=== PATIENT | female | born 1955 | race Caucasian/White ===

== ENCOUNTER → 2016-11-29 | Outpatient (CLI) | payer OTHER ==
--- NOTE | 2016-11-30 10:03 | MM ---
Reason for exam: additional evaluation requested from prior study. Last mammogram was performed 1 year ago. History: Patient is postmenopausal and has history of breast cancer at age 54. Family history of breast cancer in maternal cousin at age 40. Malignant left breast needle localization of the left breast, November 30, 2009. Malignant US left guided VAD of the left breast, November 19, 2009. Radiation therapy of the left breast, 2009. Excisional biopsy of the left breast, June 2006. Left Mammotome Panel of the left breast, April 08, 2005. Cyst aspiration of the left breast, 2003. Benign cyst aspiration of the left breast, 2002. Radiation therapy of the left breast. Taking tamoxifen for 6 years beginning at age 54. Physical Findings: Nurse did not find any significant physical abnormalities on exam. MG Diagnostic Mammo w CAD JOSETTE Bilateral CC and MLO view(s) were taken. Prior study comparison: November 23, 2015, bilateral MG diagnostic mammo w CAD JOSETTE. The breast tissue is heterogeneously dense. This may lower the sensitivity of mammography. No significant new findings when compared with previous films. These results were verbally communicated with the patient and result sheet given to the patient on 11/29/16. ASSESSMENT: Benign, BI-RAD 2 RECOMMENDATION: Follow-up diagnostic mammogram of both breasts in 1 year.
== END | disposition home or self-care (01) ==
LOC: RADMAMWWP 14:46
PROVIDERS: ATTEND Internal Medicine Hematology & Oncology
DX: Z08 Encounter for follow-up examination after completed treatment for malignant neoplasm (principal); Z85.3 Personal history of malignant neoplasm of breast

== ENCOUNTER → 2017-01-31 | Outpatient (CLI) | payer OTHER ==
--- NOTE | 2017-01-31 13:20 | US ---
EXAMINATION TYPE: US venous doppler duplex LE LT DATE OF EXAM: 01/31/2017 1:03 PM COMPARISON: NONE CLINICAL HISTORY: M25.562 Pain left leg. Left above knee pain radiating down leg since knee injury in November SIDE PERFORMED: Left TECHNIQUE: The lower extremity deep venous system is examined utilizing real time linear array sonog shyann with graded compression, doppler sonography and color-flow sonography. VESSELS IMAGED: Common Femoral Vein Deep Femoral Vein Greater Saphenous Vein * Femoral Vein Popliteal Vein Small Saphenous Vein * Proximal Calf Veins (* superficial vessels) Left Leg: Negative for DVT. Simple fluid collection is noted medial to left popliteal fossa = 3.8 x 2.1 x 1.1cm. Tech findings called to Aracelis at Dr Alicia's Office at exam's end. IMPRESSION: 1. No diagnostic evidence of DVT 2. Probable Gusman's cyst correlate with MRI.
== END | disposition home or self-care (01) ==
LOC: RADUSWWP 12:37
PROVIDERS: ATTEND Orthopaedic Surgery
DX: M25.562 Pain in left knee (principal); I80.9 Phlebitis and thrombophlebitis of unspecified site

== ENCOUNTER → 2017-02-10 | Outpatient (CLI) | payer OTHER ==
[2017-02-10 21:03] LABS: Basophils # (A) 0.1 k/uL (0-0.2); Basophils % (A) 1 %; CH 28.5; CHCM 31.9; Eosinophils # (A) 0.2 k/uL (0-0.7); Eosinophils % (A) 3 %; HCT 42.4 % (34.0-46.0); HDW 2.48; HGB 13.4 gm/dL (11.4-16.0); Luc # (Auto) 0.14; Luc % (Auto) 2; Lymphocytes % (A) 34 %; MCH 28.4 pg (25.0-35.0); MCHC 31.7 g/dL (31.0-37.0); MCV 89.7 fL (80.0-100.0); Mean Platelet Volume 8.2; Monocytes # (A) 0.4 k/uL (0-1.0); Monocytes % (A) 6 %; Neutrophils # (A) 3.2 k/uL (1.3-7.7); Neutrophils % (A) 54 %; RBC 4.72 m/uL (3.80-5.40); RDW 12.2 % (11.5-15.5); WBC 5.9 k/uL (3.8-10.6); WBC (Perox) 6.15
[2017-02-10 21:11] LABS: ALT 42 U/L (9-52); AST 26 U/L (14-36); Alkaline Phosphatase 87 U/L (38-126); Anion Gap 10 mmol/L; Blood Urea Nitrogen 15 mg/dL (7-17); Carbon Dioxide 26 mmol/L (22-30); Chloride 104 mmol/L (98-107); Cholesterol 220 mg/dL (<200); Glucose 91 mg/dL (74-99); HDL Cholesterol 74 mg/dL (40-60); Non-African American GFR(MDRD) >60 (>60 ml/min/1.73 sqM); Sodium 140 mmol/L (137-145); Total Bilirubin 1.5 mg/dL (0.2-1.3); Total Protein 7.1 g/dL (6.3-8.2)
== END | disposition home or self-care (01) ==
LOC: MMGSC 09:22
PROVIDERS: ATTEND Family Medicine
DX: I26.99 Other pulmonary embolism without acute cor pulmonale (principal)
CPT/HCPCS: 36415; 80053; 80061; 85025

== ENCOUNTER → 2017-10-25 | Outpatient (CLI) | payer BC ==
--- NOTE | 2017-10-25 15:06 | US ---
EXAMINATION TYPE: US thyroid st tissue head/neck DATE OF EXAM: 10/25/2017 COMPARISON: NONE CLINICAL HISTORY: R22.0 SWELLING, MASS,LUMP IN HEAD. follow up exam GLAND SIZE: Right Lobe: 4.5 x 1.1 x 1.4 cm Overall Parenchyma: heterogenous thyroid ultrasound August 14, 2015 Left Lobe: 4.5 x 0.8 x 1.5 cm Overall Parenchyma: homogeneous Isthmus Thickness: 0.2 cm NODULES RIGHT: # of nodules measured on right: 3 1. 0.5 X 0.5 x 0.3 cm mixed nodule at the mid pole with well-defined margins; present with microcal cifications. This nodule is wider than tall and shows intranodular vascularity. Prior size: 0.5 x 0.3 x 0.5 cm 2. 0.4 X 0.4 x 0.3 cm mixed nodule at the mid pole with well-defined margins; present with microcalc ifications. This nodule is wider than tall and shows intranodular vascularity. Prior size: 0.9 x 0.5 x 0.6 cm 3. 0.7 X 0.7 x 0.3 cm mixed nodule at the lower pole with well-defined margins. This nodule is wide r than tall and shows intranodular vascularity. Prior size: 1.9 x 0.9 x 1.9 cm LEFT: # of nodules measured on left: 0 ISTHMUS: # of nodules measured in the isthmus: 0 Bilateral neck scanned, no evidence of lymphadenopathy. Scattered small nodules are stable. Previously visualized largest medial slightly hypoechoic solid no dule is not clearly identified on current exam or if this is significantly smaller in size. No new alvarez spicious nodules are seen. IMPRESSION: Normal-sized thyroid gland without new greater than 1 cm solid or cystic nodules identified.
--- NOTE | 2017-10-26 09:03 | MM ---
Reason for exam: additional evaluation requested from prior study. Last mammogram was performed 11 months ago. History: Patient is postmenopausal and has history of breast cancer at age 54. Family history of breast cancer in maternal cousin at age 40. Malignant left breast needle localization of the left breast, November 30, 2009. Malignant US left guided VAD of the left breast, November 19, 2009. Radiation therapy of the left breast, 2009. Excisional biopsy of the left breast, June 2006. Left Mammotome Panel of the left breast, April 08, 2005. Cyst aspiration of the left breast, 2003. Benign cyst aspiration of the left breast, 2002. Radiation therapy of the left breast. Taking tamoxifen for 6 years beginning at age 54. Physical Findings: Nurse Summary: less than 0.1cm nodule in the right breast at 11, 12, 3 and 5 o'clock (nurse kp). MG Diagnostic Mammo w CAD JOSETTE Bilateral CC and MLO view(s) were taken. XCCL view(s) were taken of the left breast. Prior study comparison: November 29, 2016, bilateral MG diagnostic mammo w CAD JOSETTE. November 23, 2015, bilateral MG diagnostic mammo w CAD JOSETTE. The breast tissue is heterogeneously dense. This may lower the sensitivity of mammography. Finding: Architectural distortion in the posterior position of the left breast consistent with known lumpectomy. These results were verbally communicated with the patient and result sheet given to the patient on 10/25/17. ASSESSMENT: Incomplete: need additional imaging evaluation, BI-RAD 0 RECOMMENDATION: Ultrasound of the right breast. (palpable by nurse/patient)
--- NOTE | 2017-10-26 09:04 | USB ---
Reason for exam: additional evaluation requested from abnormal screening. History: Patient is postmenopausal and has history of breast cancer at age 54. Family history of breast cancer in maternal cousin at age 40. Malignant left breast needle localization of the left breast, November 30, 2009. Malignant US left guided VAD of the left breast, November 19, 2009. Radiation therapy of the left breast, 2009. Excisional biopsy of the left breast, June 2006. Left Mammotome Panel of the left breast, April 08, 2005. Cyst aspiration of the left breast, 2003. Benign cyst aspiration of the left breast, 2002. Radiation therapy of the left breast. Taking tamoxifen for 6 years beginning at age 54. US Breast RT Right complete breast ultrasound includes all four quadrants, the retroareolar region and axilla. Finding demonstrates no cystic or solid lesion seen. Four palpable felt with no lesions noted. These results were verbally communicated with the patient and result sheet given to the patient on 10/25/17. ASSESSMENT: Negative, BI-RAD 1 RECOMMENDATION: Follow-up diagnostic mammogram of both breasts in 1 year.
== END | disposition home or self-care (01) ==
LOC: RADMAMWWP 13:53
PROVIDERS: ATTEND Internal Medicine Hematology & Oncology
DX: N64.4 Mastodynia (principal); E04.2 Nontoxic multinodular goiter; R92.8 Other abnormal and inconclusive findings on diagnostic imaging of breast; Z85.3 Personal history of malignant neoplasm of breast
CPT/HCPCS: 76536; 77066

== ENCOUNTER → 2017-11-13 | Outpatient (CLI) | payer BC ==
--- NOTE | 2017-11-13 13:37 | XR ---
EXAMINATION TYPE: XR Hip Complete RT DATE OF EXAM: 11/13/2017 COMPARISON: NONE HISTORY: 62 year-old female chronic pain for 3 years, osteopenia TECHNIQUE: 2 views FINDINGS: There is moderate to severe degenerative joint space narrowing with marginal spurring and subchondral sclerosis at the right hip. No acute fracture, subluxation, or dislocation. IMPRESSION: Moderate to severe right hip osteoarthrosis.
--- NOTE | 2017-11-13 13:58 | XR ---
EXAMINATION TYPE: XR ankle complete LT DATE OF EXAM: 11/13/2017 COMPARISON: NONE HISTORY: 62-year-old female swelling for 5 days, osteopenia TECHNIQUE: 2 views FINDINGS: Some anterior and lateral soft tissue swelling is noted. Ankle mortise remains congruent. Talar dome is intact. No acute fracture, subluxation, or dislocation seen. IMPRESSION: Anterior and lateral soft tissue swelling. No acute osseous abnormality seen.
== END | disposition home or self-care (01) ==
LOC: RADXRMAIN 10:43
PROVIDERS: ATTEND Nurse Practitioner Adult Health
DX: M16.11 Unilateral primary osteoarthritis, right hip (principal); M79.89 Other specified soft tissue disorders; M85.80 Other specified disorders of bone density and structure, unspecified site; C50.212 Malignant neoplasm of upper-inner quadrant of left female breast; Z17.0 Estrogen receptor positive status [ER+]; E03.9 Hypothyroidism, unspecified
CPT/HCPCS: 73502

== ENCOUNTER → 2018-10-29 | Outpatient (CLI) | payer BC ==
--- NOTE | 2018-10-29 14:44 | MM ---
Reason for exam: additional evaluation requested from prior study. Last mammogram was performed 1 year ago. History: Patient is postmenopausal and has history of breast cancer at age 54. Family history of breast cancer in maternal cousin at age 40. Malignant left breast needle localization of the left breast, November 30, 2009. Malignant US left guided VAD of the left breast, November 19, 2009. Radiation therapy of the left breast, 2009. Excisional biopsy of the left breast, June 2006. Left Mammotome Panel of the left breast, April 08, 2005. Cyst aspiration of the left breast, 2003. Benign cyst aspiration of the left breast, 2002. Radiation therapy of the left breast. Taking tamoxifen for 6 years beginning at age 54. Physical Findings: Nurse did not find any significant physical abnormalities on exam. MG Diagnostic Mammo w CAD JOSETTE Bilateral CC and MLO view(s) were taken. Prior study comparison: October 25, 2017, bilateral MG diagnostic mammo w CAD JOSETTE. November 29, 2016, bilateral MG diagnostic mammo w CAD JOSETTE. The breast tissue is heterogeneously dense. This may lower the sensitivity of mammography. Medial right middle depth asymmetry on additional views. Left post therapy change. These results were verbally communicated with the patient and result sheet given to the patient on 10/29/18. ASSESSMENT: Benign, BI-RAD 2 RECOMMENDATION: Follow-up diagnostic mammogram of both breasts in 1 year.
== END | disposition home or self-care (01) ==
LOC: RADMAMWWP 13:23
PROVIDERS: ATTEND Internal Medicine Hematology & Oncology
DX: Z85.3 Personal history of malignant neoplasm of breast (principal)
CPT/HCPCS: 77066

== ENCOUNTER → 2019-05-02 | Outpatient (CLI) | payer BC ==
--- NOTE | 2019-05-02 14:31 | XR ---
EXAMINATION TYPE: XR Hip Complete RT DATE OF EXAM: 05/02/2019 CLINICAL HISTORY: Right hip pain with no known injury TECHNIQUE: AP and frogleg views of the right hip are obtained. COMPARISON: None. FINDINGS: There is no acute fracture/dislocation evident in the right hip. The joint space in the r ight hip appears aligned however there is severe joint space narrowing with opposing surface sclerosi s of the femoral acetabular joint and subchondral cysts. There is [id number] articulation of the we ightbearing surface and marginal osteophytes. Femoral head maintains a normal rounded morphology. IMPRESSION: 1. Severe arthropathy of the right hip with [id number] articulation of the femoral acetabular joint , subchondral cysts and opposing surface sclerosis. 2. No acute fracture or dislocation in the right hip.
== END | disposition home or self-care (01) ==
LOC: RADXRMAIN 13:42
PROVIDERS: ATTEND Family Medicine
DX: M12.851 Other specific arthropathies, not elsewhere classified, right hip (principal); M85.651 Other cyst of bone, right thigh; M89.8X5 Other specified disorders of bone, thigh
CPT/HCPCS: 73502

== ENCOUNTER → 2019-05-02 | Outpatient (CLI) | payer BC ==
--- NOTE | 2019-05-02 09:15 | BD ---
EXAMINATION TYPE: Axial Bone Density DATE OF EXAM: 05/02/2019 COMPARISON: 04/26/2017 CLINICAL HISTORY: M 89.9 Height: 65.5 Weight: 160 FRAX RISK QUESTIONS: Alcohol (3 or more units per day): no Family History (Parent hip fracture): no Glucocorticoids (More than 3mos): no (Ex: prednisone, prednisolone, methylprednisolone, dexamethasone, and hydrocortisone). History of Fracture in Adulthood: yes Secondary Osteoporosis: 1. Type 1 Diabetes: no 2. Hyperthyroidism: no 3. Menopause before 45: hysterectomy age 45 4. Malnutrition: no 5. Chronic liver disease: no Rheumatoid Arthritis: no Current Tobacco Use: no RISK FACTORS HISTORY OF: History of Wrist Fracture: yes When: as young adult Family History of Osteoporosis: not to knowledge of patient Active: yes Diet low in dairy products/other sources of calcium: no Postmenopausal woman: no Take estrogen and/or progesterone medications: no Lost more than 2 inches in height since high school: no Frequent falls: no Poor Health: no, fair Hyperparathyroidism: no Adrenal Insufficiency: no MEDICATIONS: Prednisone or other steroids: no Thyroid Medications: Which medication: Levothyroxine How Long: over 20 years Osteoporosis Medications: no Additional Medications: Femara ; Vitamin D 3 Additional History: breast CA age 54; history of subacute hypothyroidism; thyroid nodule EXAM MEASUREMENTS: Bone mineral densitometry was performed using the Greetz System. Bone mineral density as measured about the Lumbar spine is: ----- L1-L4(G/cm2): 0.880 T Score Values are as follows: ----- L2: -2.5 ----- L3: -2.4 ----- L4: -2.8 ----- L1-L4: -2.5 Bone mineral density has: Decreased -5.6% since study of: 04/26/2017 Bone mineral density about the R hip (g/cm2): 0.885 Bone mineral density about the L hip (g/cm2): 0.838 T Score values are as follows: -----R Neck: -1.1 -----L Neck: -1.4 -----R Total: -1.1 -----L Total: -1.4 Bone mineral density has: Decreased -3.6% since study of: 04/26/2017 IMPRESSION: Osteopenia (T Score between -2.5 and -1). There is slightly increased risk of fracture and the patient may be considered for treatment. Re-Screen 2-5 years. NOTE: T-SCORE=SD OF THE YOUNG ADULT MEAN.
== END | disposition home or self-care (01) ==
LOC: RADBDWWP 07:14
PROVIDERS: ATTEND Internal Medicine Hematology & Oncology
DX: M85.80 Other specified disorders of bone density and structure, unspecified site (principal); C50.212 Malignant neoplasm of upper-inner quadrant of left female breast
CPT/HCPCS: 77080

== ENCOUNTER → 2019-06-03 | Outpatient (CLI) | payer BC | END | disposition home or self-care (01) | LOC: LABPAT 10:59 | PROVIDERS: ATTEND Orthopaedic Surgery | DX: Z01.812 Encounter for preprocedural laboratory examination (principal); M16.11 Unilateral primary osteoarthritis, right hip | CPT/HCPCS: 87070 ==

== ENCOUNTER → 2019-06-06 | Outpatient (CLI) | payer BC ==
--- NOTE | 2019-06-06 18:06 | ECHOF ---
Referral Reason:R06.09 Dyspna on exertion MEASUREMENTS -------- HEIGHT: 165.1 cm WEIGHT: 73.5 kg BP: RVIDd: 3.2 cm (< 3.3) IVSd: 0.9 cm (0.6 - 1.1) LVIDd: 3.6 cm (3.9 - 5.3) LVPWd: 1.1 cm (0.6 - 1.1) IVSs: 1.6 cm LVIDs: 2.2 cm LVPWs: 1.7 cm LAESV Index (A-L): 16.51 ml/m Ao Diam: 2.4 cm (2.0 - 3.7) AV Cusp: 2.1 cm (1.5 - 2.6) LA Diam: 3.4 cm (2.7 - 3.8) MV EXCURSION: 17.007 mm (> 18.000) MV EF SLOPE: 100 mm/s (70 - 150) EPSS: 0.2 cm MV E Jalen: 0.52 m/s MV DecT: 178 ms MV A Jalen: 0.53 m/s MV E/A Ratio: 0.98 RAP: 5.00 mmHg RVSP: 28.35 mmHg FINDINGS -------- Sinus rhythm. This was a technically good study. The left ventricular size is normal. Left ventricular wall thickness is normal. There is normal g lobal left ventricular contractility. Overall left ventricular systolic function is normal with, an EF between 60 - 65 %. The diastolic filling pattern is normal for the age of the patient 5.98. The right ventricle is normal in size. Normal LA size by volume 22+/-6 ml/m2. The right atrial size is normal. Interatrial and interventricular septum intact. The aortic valve is trileaflet and appears structurally normal. There is no evidence of aortic regu rgitation. There is no evidence of aortic stenosis. No mitral regurgitation. Mild tricuspid regurgitation present. There is no evidence of pulmonary hypertension. The right v entricular systolic pressure, as measured by Doppler, is 28.35mmHg. There is no pulmonic regurgitation present. The aortic root size is normal. The inferior vena cava is mildly dilated. There is no pericardial effusion. CONCLUSIONS -------- 1. Sinus rhythm. 2. This was a technically good study. 3. The left ventricular size is normal. 4. Left ventricular wall thickness is normal. 5. There is normal global left ventricular contractility. 6. Overall left ventricular systolic function is normal with, an EF between 60 - 65 %. 7. The diastolic filling pattern is normal for the age of the patient 5.98 8. The right ventricle is normal in size. 9. Normal LA size by volume 22+/-6 ml/m2. 10. The right atrial size is normal. 11. Interatrial and interventricular septum intact. 12. The aortic valve is trileaflet and appears structurally normal. 13. There is no evidence of aortic regurgitation. 14. There is no evidence of aortic stenosis. 15. No mitral regurgitation. 16. Mild tricuspid regurgitation present. 17. There is no evidence of pulmonary hypertension. 18. The right ventricular systolic pressure, as measured by Doppler, is 28.35mmHg. 19. There is no pulmonic regurgitation present. 20. The aortic root size is normal. 21. The inferior vena cava is mildly dilated. 22. There is no pericardial effusion. [employer] DANCER: Julianne Rubalcava RDCS
== END | disposition home or self-care (01) ==
LOC: RADECHMAIN 08:03
PROVIDERS: ATTEND Family Medicine
DX: I07.1 Rheumatic tricuspid insufficiency (principal)
CPT/HCPCS: 93306

== ENCOUNTER 2019-06-11 06:48 | Observation (INO) | payer BC ==
[2019-06-05 16:04] VITALS: BMI 26.9
--- NOTE | 2019-06-10 09:45 | HP ---
HISTORY AND PHYSICAL CHIEF COMPLAINT: Right hip pain. HISTORY OF PRESENT ILLNESS: Patient is a 63-year-old female who presents with progressive right hip pain over the past 5 years. It has worsened over the past 6 months. She is having thigh and groin pain with weightbearing activities. She notes this severely limits her. She is taking medications with only partial temporary relief. PAST MEDICAL HISTORY: Significant for hypothyroidism and breast cancer. PAST SURGICAL HISTORY: Significant for previous breast surgery and hysterectomy. CURRENT MEDICATIONS: 1. Femara. 2. Levoxyl. ALLERGIES: She denies drug allergies. FAMILY HISTORY: Noncontributory. SOCIAL HISTORY: Negative for current tobacco or alcohol use. REVIEW OF SYSTEMS: Sixteen-point review of systems otherwise reviewed and is noncontributory. PHYSICAL EXAMINATION: On examination, the patient is approximately 5 feet, 5 inches, 162 pounds of endomorphic habitus. HEENT exam is nonfocal. Neck is supple. Passive motion right hip, flexion 75 degrees, external rotation with the hip flexed 40 degrees, internal rotation -15 degrees with pain. Clinically, she has got 1 cm shortening of the right lower extremity compared to the left. Her distal neurovascular exam appears intact in the right lower extremity. X-rays of the right hip obtained in the office show severe osteoarthrosis with bone-on- bone changes. IMPRESSION: 1. Right hip severe osteoarthrosis. 2. History of breast cancer. RECOMMENDATIONS: I talked to the patient at length regarding her condition along with treatment options. At this point, she opts to proceed with surgery. We will plan to proceed with right total hip arthroplasty utilizing an anterior approach. We will institute DVT prophylaxis postoperatively. MMODL / IJN: [id number] /
[~2019-06-11 06:48] MED LIST: HYDROmorphone 0.5 MG/0.5 ML SYRINGE IVP PRN; LIDOCAINE 1% 20 ML VIAL (10MG/ML) FOR IV START INTRADERMA PRN; TRANEXAMIC ACID 1,000 MG in SODIUM CHLORIDE 0.9% 100 ML IVPB ONE
[2019-06-11] MEDS: MELOXICAM 7.5 MG TAB PO ONE ×2 (07:27→13:16)
[2019-06-11] MEDS: ACETAMINOPHEN TAB 500 MG TAB PO ONE ×2 (07:27→13:16)
[2019-06-11] MEDS: LACTATED RINGERS 1,000 ML IV SCH ×3 (07:32→22:17)
[2019-06-11] MEDS: ONDANSETRON 4 MG/2 ML VIAL IVP ONE ×2 (07:33→13:20)
[2019-06-11] MEDS: DEXAMETHASONE SOD PHOSPHATE 10 MG/ML 1 ML VIAL IV ONE ×2 (07:33→13:17)
[2019-06-11] MEDS: SCOPOLAMINE 1.5MG/72HR PATCH TRANSDERM ONE ×2 (07:34→13:20)
[2019-06-11] MEDS ORDERED: MIDAZOLAM 2 MG/2 ML VIAL ONE (07:55)
[2019-06-11] MEDS ORDERED: fentaNYL (PF) 50 MCG/ML 2 ML AMP ONE (07:55)
[2019-06-11] MEDS ORDERED: TRANEXAMIC ACID 1,000 MG/10 ML VIAL ONE (07:55)
[2019-06-11] MEDS ORDERED: PROPOFOL 10 MG/ML 20 ML VIAL IV ONE (07:55)
[2019-06-11] MEDS ORDERED: PHENYLEPHRINE-0.9% NACL SYG 1 MG/10 ML SYRINGE ONE (07:55)
[2019-06-11] MEDS ORDERED: SODIUM CHLORIDE 0.9% 100 ML BAG ONE (07:55)
[2019-06-11] MEDS ORDERED: ceFAZolin 3,000 MG in SODIUM CHLORIDE 0.9% IRRIGATIO 3,000 ML IRRIGATION ONE (08:38)
[2019-06-11] MEDS ORDERED: LACTATED RINGERS 1,000 ML IV ONE ×2 (09:32→12:09)
[2019-06-11] MEDS ORDERED: traMADol 50 MG TAB PO PRN (09:57)
[2019-06-11] MEDS ORDERED: HYDROcodone/APAP 5-325MG 1 EACH TAB PO PRN ×2 (09:57)
[2019-06-11] MEDS ORDERED: ACETAMINOPHEN TAB 325 MG TAB PO PRN (09:57)
[2019-06-11] MEDS ORDERED: MAGNESIUM HYDROXIDE 2,400 MG/10 ML CUP PO PRN (09:57)
[2019-06-11] MEDS ORDERED: NALOXONE 0.4 MG/ML 1 ML VIAL IV PRN (09:57)
[2019-06-11] MEDS ORDERED: HYDROmorphone 1 MG/ML 1 ML SYRINGE IVP PRN (09:57)
[2019-06-11] MEDS ORDERED: HYDROmorphone 0.5 MG/0.5 ML SYRINGE IVP PRN (09:57)
[2019-06-11] MEDS ORDERED: ONDANSETRON 4 MG/2 ML VIAL IVP PRN (09:57)
--- NOTE | 2019-06-11 10:21 | P.OP ---
Date of Procedure: 06/11/19 Preoperative Diagnosis: Severe right hip osteoarthrosis Postoperative Diagnosis: Same Procedure(s) Performed: Right total hip arthroplastypress-fitanterior approach Implants: Depuy Corail size 12 collared coxa vara press-fit femoral stem, 36+1.5 ceramic femoral head, 54 mm [place] acetabular shell with neutral polyethylene liner. Anesthesia: spinal Surgeon: Andre Howe Activities Assistant #1: Rob Culp Estimated Blood Loss (ml): 350 Pathology: other (Femoral head) Condition: stable Disposition: PACU Indications for Procedure: The patient is a 63-year-old female who presents with progressive right hip pain secondary to osteoporosis despite conservative measures. A discussion of the risks and benefits of operative intervention versus continued conservative measures was made with the patient. She opted to proceed with surgery. Operative risks to include infection, neurovascular injury, development of blood clots, possible leg length discrepancy, possible fracture, possible instability and need for subsequent procedures was discussed. Informed consent was obtained. Operative Findings: As below Description of Procedure: The patient was brought to the operating room, and after induction of spinal anesthesia was placed supine on the Sandhya table. Positioning was checked with fluoroscopy. The right hip was then prepped and draped in a normal fashion. A 12 cm incision was then made starting 2 fingerbreadths distal and 3 finger breaths posterior to the ASIS in line with the proximal femur. The skin was incised sharply. Subcutaneous tissues were divided sharply. Electrocautery was used for hemostasis. The fascia was split in line with skin incision. The interval between the sartorius and tensor fascia riana was then bluntly developed. The posterior fascia was opened with electrocautery. The lateral circumflex vessels were identified and cauterized prior to sectioning. A retractor was placed along the superior femoral neck as well as the anterior acetabular rim. A wide capsulotomy was performed. The neck cut was then made at a 45 angle to the shaft approximately 1 1/2 cm above the level of the lesser trochanter. The head was extracted. Attention was then paid towards preparing the acetabular. Anterior and posterior retractors were placed. The remaining capsular labral tissue sharply debrided clearly defining the aceta bular margins. I began reaming with a 45 mm reamer taking care to initially medialize then reaming at 45 of abduction and 20 of anteversion. Sequential reaming is performed up to 53 mm. A trial to 4 mm acetabular shell was inserted in the same orientation and was fully seated. There was good rim fit and stability. Positioning was checked with fluoroscopy. The final 54 mm acetabular shell was inserted again at 45 of abduction and 20 of anteversion. This was fully seated. There was good rim fit and stability. Again fluoroscopy was used to check the adequacy of placement. I did place a 30 mm x 6.5 mm cancellus screw posterior/superior with good purchase. A neutral polyethylene liner was gently impacted. Care was taken to avoid any soft tissue interposition. Pulsatile lavage was utilized. Attention was then paid towards preparing the proximal femur. The central region was cleared of soft tissue. A canal finder was used to find the femoral canal. Sequential broaching was performed up to size 12 taking care to lateralize proximally. A calcar mill was used to fashion the medial calcar. There was good rotational stability. A coxa vara neck along with a 36 mm +1.5 head was placed. The hip was gently reduced. Fluoroscopy was used to check the adequacy of positioning along with leg lengths. I felt both were good. The hip was gently dislocated. The trial components were removed. The final size 12 coxa vara collared standard press- fit femoral stem was inserted parallel to the posterior cortex. This was fully seated and there was good rotational stability. A 36 mm +1.5 ceramic femoral head was placed. This was gently impacted. The hip was then gently reduced. Final fluoroscopic view showed adequate placement implant along with episcopalian of leg length. Stability was checked with 80 of external rotation and 60 of extension of the right hip. The wound was irrigated with sterile lavage. The fascia was closed with running 0 Vicryl suture. There was minimal drainage therefore a deep drain was not placed. The second dose of IV TXA was given. The subcutaneous tissues were reapproximated interrupted 2-0 Vicryl sutures. The skin was reapproximated with 3-0 subcuticular strata fix suture. Skin tape and adhesive was applied. A sterile dressing was applied. The patient was then awoken from sedation and transferred to recovery room in good condition. Blood loss was estimated at 350 mL. No complications were incurred. The second dose of IV TXA was given. She did receive Cell Saver. Sponge and needle counts were correct at the end of the case. Joss ROLLE assisted during the major components is case to include exposure, bone resection, implantation, and closure.
--- NOTE | 2019-06-11 10:35 | FL ---
Fluoroscopy History: RIGHT ANTERIOR HIP REPLACEMENT 49 SEC FLUORO, 2 IMAGES SCANNED
[2019-06-11] MEDS ORDERED: diphenhydrAMINE 50 MG/ML 1 ML VIAL IVP ONE (11:25)
--- NOTE | 2019-06-11 15:51 | P.CONS ---
History of Present Illness - Chief Complaint Hip replacement medical management - History of Present Illness This is a very pleasant 63-year-old female past medical history of hypothyroidism breast cancer is coming in for elective right total hip replacement. Patient is now immediate postoperative period she is doing well. She denies any shortness of breath chest pain nausea or vomiting. Patient has history of hypothyroidism breast cancer which is taking currently Fumara. She denies any pre-existing history of cardiac, respiratory or renal or endocrinological diseases. Denies drinking or smoking. Review of Systems Review of system performed and is negative except mentioned in HPI Past Medical History Past Medical History: Cancer, Osteoarthritis (OA), Thyroid Disorder Additional Past Medical History / Comment(s): hx. breast cancer October 2009- radiation & surgery History of Any Multi-Drug Resistant Organisms: None Reported Past Surgical History: Breast Surgery, Hysterectomy Additional Past Surgical History / Comment(s): left breast lumpectomy w/few axillary lymph nodes removed, cyst removed from left forearm Past Anesthesia/Blood Transfusion Reactions: Postoperative Nausea & Vomiting (PONV) Past Psychological History: No Psychological Hx Reported Smoking Status: Never smoker Past Alcohol Use History: Rare Past Drug Use History: None Reported - Past Family History Mother Family Medical History: No Reported History Medications and Allergies Home Medications Medication Instructions Recorded Confirmed Type Cholecalciferol [Vitamin D3 (25 1,000 unit PO DAILY 06/05/19 06/11/19 History Mcg = 1000 Iu)] Letrozole [Femara] 2.5 mg PO HS 06/05/19 06/11/19 History Levothyroxine Sodium [Levoxyl] 75 mcg PO DAILY 06/05/19 06/11/19 History [place]-3 Fatty Acids [[place]-3] 1,000 mg PO DAILY 06/05/19 06/11/19 History Allergies Allergy/AdvReac Type Severity Reaction Status Date / Time No Known Allergies Allergy Verified 06/11/19 07:24 Physical Exam Vitals: Vital Signs Temp Pulse Pulse Resp BP Pulse Ox 06/11/19 12:40 63 125/81 99 06/11/19 12:25 74 119/62 100 06/11/19 11:15 58 L 14 119/56 99 06/11/19 10:30 68 16 114/58 100 06/11/19 10:15 58 L 16 112/56 100 06/11/19 10:11 97.0 F L 54 L 14 108/59 98 02/11/20 07:17 98.0 F 67 18 149/72 96 Intake and Output 06/11/19 06/11/19 06/11/19 06:59 14:59 22:59 Intake Total 6300 Output Total 325 Balance 5975 Intake: IV 5050 Intake, IV Titration 1250 Amount Lactated Ringers 1,000 ml 1250 @ 0 mls/hr IV .[facility] Rx#:[id number] Output: Estimated Blood Loss 325 Other: # Voids 1 Weight 73 kg Vital Signs: I have reviewed the vital signs. GENERAL: Well-nourished, Well-developed , no apparent distress, cooperative Eyes: PERRL, extraoculry movements intact, clear conjunctiva Head: : Atraumatic external nose and ears, oropharyngeal mucosa is moist without lesions or exudates Neck: Symmetric, trachea midline, No thyromegaly, no masses or neck vain pulsation, no neck rigidity CVS: +S1/S2, No murmurs or gallops. Peripheral pulses 2+ and equal in all extremities. RESP: Unlabored respiratory effort. Clear to auscultation bilaterally. Abdomen: Bowel sounds present in all 4 quadrants, Soft to palpation, Nontender/Nondistended, No hepatosplenomegaly, no hernias or masses, no CVA tnderness Musculoskeletal: Extremities w/o deformity, No cyanosis or clubbing, no joint swelling Skin: Warm, Dry. 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 Hypothyroidism Continue levothyroxine 2. History of breast cancer Patient is currently on Fumara which can cause some arthralgia and increase DVT risks Xarelto should be sufficient to mitigate risks of thrombolytic embolism his medication I don't anticipate any changes in his medications at time of discharge Any changes should be addressed in the outpatient through her oncologist 3. Status post right ALICIA Pain control Physical occupational therapy DVT prophylaxis with Xarelto as already ordered through orthopedic service Patient is a full code Surrogate decision maker is her who was in the room during the interview
[2019-06-11] MEDS ORDERED: SENNOSIDES-DOCUSATE SODIUM 1 EACH TAB PO SCH (21:00)
[2019-06-11] MEDS ORDERED: LETROZOLE 2.5 MG TAB PO SCH (21:30)
[2019-06-12] MEDS ORDERED: LEVOTHYROXINE 75 MCG TAB PO SCH (06:30)
[2019-06-12 07:36] VITALS: BP 106/68; PULSE 76; RESP 17; TEMP 98.4
[2019-06-12 07:55] LABS: Basophils % (A) 0 %; Eosinophils # (A) 0.1 k/uL (0-0.7); Eosinophils % (A) 1 %; HCT 29.3 % (34.0-46.0); Lymphocytes # (A) 1.8 k/uL (1.0-4.8); Lymphocytes % (A) 19 %; MCH 29.2 pg (25.0-35.0); MCHC 33.9 g/dL (31.0-37.0); MCV 86.2 fL (80.0-100.0); Mean Platelet Volume 7.8; Monocytes # (A) 0.7 k/uL (0-1.0); Monocytes % (A) 7 %; Neutrophils # (A) 6.6 k/uL (1.3-7.7); Neutrophils % (A) 71 %; Platelet Count 261 k/uL (150-450); RDW 12.5 % (11.5-15.5); WBC 9.3 k/uL (3.8-10.6)
[2019-06-12 08:03] LABS: HGB 9.9 gm/dL (11.4-16.0)
[2019-06-12] MEDS ORDERED: RIVAROXABAN 10 MG TAB PO SCH (09:00)
[2019-06-12] MEDS ORDERED: FAMOTIDINE 20 MG TAB PO SCH (09:00)
--- NOTE | 2019-06-12 11:07 | P.PN ---
Subjective Progress Note Date: 06/12/19 Principal diagnosis: status post right total hip arthroplasty Patient evaluated at bedside today, her is present. Patient is doing very well at this time, her pain is well-controlled. Denies chest pain or shortness of breath at this time. Objective - Vital Signs Vital signs: Vital Signs Temp 98.4 F 06/12/19 07:00 Pulse 76 06/12/19 07:00 Resp 17 06/12/19 07:00 BP 106/68 06/12/19 07:00 Pulse Ox 96 06/12/19 07:00 Intake & Output 06/11/19 06/12/19 06/12/19 18:59 06:59 18:59 Intake Total 6300 Output Total 325 Balance 5975 Weight 73 kg Intake: IV 5050 Intake, IV Titration 1250 Amount Lactated Ringers 1,000 ml 1250 @ 0 mls/hr IV .[facility] Rx#:[id number] Output: Estimated Blood Loss 325 Other: Voiding Method Toilet # Voids 1 1 - Exam Right lower extremity: Incision is clean, dry, and intact. The exofin fusion tape is in good condition. There is minimal soft tissue swelling and ecchymosis surrounding the medial and lateral aspects of the incision. Calf is soft, no tenderness with palpation. Plantar flexion, dorsiflexion, EHL, FHL are intact. Sensory exam to light touch throughout the extremity is intact, dorsal pedis pulses 2+. - Labs CBC & Chem 7: 06/12/19 06:57 Labs: Abnormal Lab Results - Last 24 Hours (Table) 06/12/19 Range/Units 06:57 RBC 3.40 L (3.80-5.40) m/uL Hgb 9.9 L D (11.4-16.0) gm/dL Hct 29.3 L (34.0-46.0) % Assessment and Plan Assessment: Postoperative day #1 status post right total hip arthroplasty Plan: Pain control, tramadol 50 mg for discharge GI and DVT prophylaxis, Eliquis 2.5mg bid for 2 weeks Wound care instructions discussed Ice and elevating techniques discussed Home physical therapy and nursing after discharge Medical recommendations Discharge planning: Plan for discharge home today
--- NOTE | 2019-06-12 11:10 | P.DS ---
Providers Date of admission: 06/11/2019 Expected date of discharge: 06/12/19 Attending physician: Andre Howe Consults: 06/11/19 09:59 Consult Physician Routine Consulting Provider: Johanne Armijo Reason/Comments: Medical Management Do you want consulting provider notified?: Yes Primary care physician: Johanne Armijo Hospital Course: Date of admission: 06/11/2019 Date of discharge: 06/12/2019 Admission diagnosis: Status post direct anterior right total hip arthroplasty Discharge diagnosis: Same Attending physician: Dr. Howe Surgical procedures: Direct anterior right total hip arthroplasty Brief history: Patient is a 63-year-old female with a history of progressive primary right hip osteoarthritis. At this point patient has failed conservative treatment measures and has opted to proceed with a elective direct anterior right total hip arthroplasty. Hospital course: Details of patient's surgery can be found in operative report. Patient tolerated the procedure well and was subsequently transported to orthopedic floor. Patient's orthopeidc and medical care was provided daily. Patient had daily laboratory tests performed for evaluation of overall blood counts. Patient had daily physical therapy to include strengthening range of motion as well as education with walker ambulation. Patient was treated with Xarelto for their postoperative DVT prophylaxis during their inpatient stay. Patient was noted to have a relatively uneventful postoperative course. Patient reported satisfactory pain control with oral pain medications by postoperative day 0. Patient showed satisfactory progress with physical therapy. Patient moved steadily through the program and had no difficulty meeting the goals by postoperative day 1. Given patient's otherwise satisfactory course and having met physical therapy goals, plan is to discharge patient home on postoperative day 1. Discharge condition/disposition: Patient will be discharged home in stable condition. Discharge medications: Instructions are given on resumption of patient's normal daily medications per primary care recommendation, in addition patient will be prescribed tramadol 50 mg, Colace 100 mg, Eliquis 2.5mg. Discharge instructions: 1. Wound care and infection precautions, keep incision dry and covered while showering, no lotions, creams, moisturizers. No soaking, tubs, pools, hottubs. Do not scrub over the incision. 2. Weight-bear as tolerated with walker / cane until follow-up. 3. Ice and elevate when necessary. Do not exceed 20 minutes per hour with ice pack. 4. Utilize compression sleeve until seen at first follow up appointment. 5. Visiting nursing care. 6. Home physical therapy. 7. Pain meds and anticoagulants per prescription. 8. Pain medication has potential to cause constipation. Increase oral fluid and fiber intake. Contact primary care provider if you have not had a bowel movement within 48 hours after discharge 9. No anti-inflammatory medication until discussed at first post operative visit, this including Motrin, Aleve, Mobic, Diclofenac. 10. Follow up in office at 2 weeks postop with Joss Culp PA-C 11. Follow up with your primary care doctor 7-10 days after discharge. 12. Contact [facility] with any questions, . Procedures: Direct anterior right total hip arthroplasty Patient Condition at Discharge: Good Plan - Discharge Summary Discharge Rx Participant: Yes New Discharge Prescriptions: New Docusate [Colace] 100 mg PO DAILY #30 capsule Apixaban [Eliquis] 2.5 mg PO BID #60 tab traMADol HCl [Ultram] 50 mg PO Q6H PRN #28 tab PRN Reason: Pain No Action Levothyroxine Sodium [Levoxyl] 75 mcg PO DAILY [place]-3 Fatty Acids [[place]-3] 1,000 mg PO DAILY Letrozole [Femara] 2.5 mg PO HS Cholecalciferol [Vitamin D3 (25 Mcg = 1000 Iu)] 1,000 unit PO DAILY Discharge Medication List Cholecalciferol [Vitamin D3 (25 Mcg = 1000 Iu)] 1,000 unit PO DAILY 06/05/19 [History] Letrozole [Femara] 2.5 mg PO HS 06/05/19 [History] Levothyroxine Sodium [Levoxyl] 75 mcg PO DAILY 06/05/19 [History] [place]-3 Fatty Acids [[place]-3] 1,000 mg PO DAILY 06/05/19 [History] Apixaban [Eliquis] 2.5 mg PO BID #60 tab 06/12/19 [Rx] Docusate [Colace] 100 mg PO DAILY #30 capsule 06/12/19 [Rx] traMADol HCl [Ultram] 50 mg PO Q6H PRN #28 tab 06/12/19 [Rx] Follow up Appointment(s)/Referral(s): Rob Culp PAC [PHYSICIAN 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 Wound care and infection precautions, keep incision dry and covered while showering, no lotions, creams, moisturizers. No soaking, pools, hot tubs. Do not scrub over incision. 2. Weight-bear as tolerated with walker / cane until follow-up. 3. Ice and elevate when necessary. Do not exceed 20 minutes per hour with ice pack. 4. Utilize compression sleeve until seen at first follow up appointment. 5. Pain meds and anticoagulants per prescription. 6. Pain medication has potential to cause constipation. Increase oral fluid and fiber intake. Contact primary care provider if you have not had a bowel movement within 48 hours after discharge. 7. No anti-inflammatory medication until discussed at first post operative visit, this including Motrin, Aleve, Mobic, Diclofenac. 8. Follow up in office at 2 weeks postop with Joss Culp PA-C 9. Follow up with your primary care doctor 7-10 days after discharge. 10. Contact [facility] with any questions, . Discharge Disposition: HOME WITH HOME HEALTH SERVICES
== END 2019-06-12 13:11 | disposition home health service (06) ==
LOC: OR 06:48 → 4SSUR 10:11 → OR 15:26
PROVIDERS: ADMIT Orthopaedic Surgery; ATTEND Orthopaedic Surgery
DX: M16.11 Unilateral primary osteoarthritis, right hip (principal); E03.9 Hypothyroidism, unspecified; R06.09 Other forms of dyspnea; Z85.3 Personal history of malignant neoplasm of breast; Z91.89 Other specified personal risk factors, not elsewhere classified; Z91.018 Allergy to other foods; Z79.811 Long term (current) use of aromatase inhibitors; Z79.890 Hormone replacement therapy; Z98.890 Other specified postprocedural states; Z90.710 Acquired absence of both cervix and uterus; Z92.3 Personal history of irradiation; Z87.2 Personal history of diseases of the skin and subcutaneous tissue; Z86.69 Personal history of other diseases of the nervous system and sense organs
CPT/HCPCS: 27130; 97116; 97161; 97535; 97165; 88305; 85025; 88311; 73501; G0378 ×2; C1776; J2250; J1200; J1100; J0690 ×3; J2405; J3010; J2370; J2704; 36415; 86850; 86900; 86901

== ENCOUNTER → 2019-10-31 | Outpatient (CLI) | payer BC ==
--- NOTE | 2019-10-31 09:29 | MM ---
Reason for exam: additional evaluation requested from prior study. Last mammogram was performed 1 year ago. History: Patient is postmenopausal and has history of breast cancer at age 54. Family history of breast cancer in maternal cousin at age 40. Malignant left breast needle localization of the left breast, November 30, 2009. Malignant US left guided VAD of the left breast, November 19, 2009. Radiation therapy of the left breast, 2009. Excisional biopsy of the left breast, June 2006. Left Mammotome Panel of the left breast, April 08, 2005. Cyst aspiration of the left breast, 2003. Benign cyst aspiration of the left breast, 2002. Radiation therapy of the left breast. Taking tamoxifen for 6 years beginning at age 54. Physical Findings: Nurse did not find any significant physical abnormalities on exam. MG 3D Diag Mammo W/Cad JOSETTE Bilateral CC and MLO view(s) were taken. XCCL view(s) were taken of the left breast. Prior study comparison: October 29, 2018, bilateral MG diagnostic mammo w CAD JOSETTE. October 25, 2017, bilateral MG diagnostic mammo w CAD JOSETTE. The breast tissue is heterogeneously dense. This may lower the sensitivity of mammography. Post surgical and post therapy changes left breast. No significant new findings when compared with previous films. These results were verbally communicated with the patient and result sheet given to the patient on 10/31/19. ASSESSMENT: Benign, BI-RAD 2 RECOMMENDATION: Follow-up diagnostic mammogram of both breasts in 1 year.
== END | disposition home or self-care (01) ==
LOC: RADMAMWWP 08:06
PROVIDERS: ATTEND Internal Medicine Hematology & Oncology
DX: Z08 Encounter for follow-up examination after completed treatment for malignant neoplasm (principal); Z85.3 Personal history of malignant neoplasm of breast
CPT/HCPCS: 77062; 77066

== ENCOUNTER → 2019-11-14 | Outpatient (CLI) | payer BC ==
[2019-11-14 17:27] LABS: T4, Free (Free Thyroxine) 1.4 ng/dL (0.80-1.80)
== END | disposition home or self-care (01) ==
LOC: LABWHC1 09:41
PROVIDERS: ATTEND Family Medicine
DX: E03.9 Hypothyroidism, unspecified (principal)
CPT/HCPCS: 36415; 84439; 84443; 84481

== ENCOUNTER → 2020-11-03 | Outpatient (CLI) | payer MEDICARE ==
--- NOTE | 2020-11-04 09:46 | MM ---
Reason for exam: additional evaluation requested from prior study. Last mammogram was performed 1 year ago. History: Patient has history of breast cancer at age 54. Family history of breast cancer in maternal cousin at age 40. Malignant left breast needle localization of the left breast, November 30, 2009. Malignant US left guided VAD of the left breast, November 19, 2009. Radiation therapy of the left breast, 2009. Excisional biopsy of the left breast, June 2006. Left Mammotome Panel of the left breast, April 08, 2005. Cyst aspiration of the left breast, 2003. Benign cyst aspiration of the left breast, 2002. Radiation therapy of the left breast. Took antineoplastic for 10 years beginning at age 54. Physical Findings: Nurse did not find any significant physical abnormalities on exam. MG 3D Diag Mammo W/Cad JOSETTE Bilateral CC and MLO view(s) were taken. XCCL view(s) were taken of the left breast. Prior study comparison: October 31, 2019, bilateral MG 3d diag mammo w/cad JOSETTE. October 29, 2018, bilateral MG diagnostic mammo w CAD JOSETTE. The breast tissue is heterogeneously dense. This may lower the sensitivity of mammography. Left lumpectomy and radiation change stable. These results were verbally communicated with the patient and result sheet given to the patient on 11/03/20. ASSESSMENT: Benign, BI-RAD 2 RECOMMENDATION: Routine screening mammogram of both breasts in 1 year.
== END | disposition home or self-care (01) ==
LOC: RADMAMWWP 09:58
PROVIDERS: ATTEND Internal Medicine Hematology & Oncology
DX: R92.2 Inconclusive mammogram (principal); Z85.3 Personal history of malignant neoplasm of breast; Z80.3 Family history of malignant neoplasm of breast
CPT/HCPCS: 77066; G0279; 77062

== ENCOUNTER 2021-04-01 09:43 | Emergency (ER) | payer MEDICARE, BC ==
--- NOTE | 2021-04-01 10:51 | XR ---
EXAMINATION TYPE: XR chest 2V DATE OF EXAM: 04/01/2021 COMPARISON: 03/31/2015 HISTORY: Shortness of breath TECHNIQUE: Frontal and lateral views of the chest are obtained. FINDINGS: Scattered senescent parenchymal changes noted. Hyperinflation compatible with COPD. No evidence for infiltrate. No evidence for atelectasis. Heart size is stable. Mediastinal structures are stable and grossly unremarkable. No evidence for hilar prominence. Degenerative changes dorsal spine. IMPRESSION: 1. No evidence for acute pulmonary disease.
--- NOTE | 2021-04-01 11:20 | ED ---
URI HPI - General Chief Complaint: Upper Respiratory Infection Stated Complaint: Covid +, Diarrhea, body aches Time Seen by Provider: 04/01/21 09:59 Source: patient, RN notes reviewed Mode of arrival: ambulatory Limitations: no limitations - History of Present Illness Initial Comments: Patient is a 65-year-old female that presents to the emergency department with Covid like symptoms since Monday. Patient notes she did test positive but does not have the results with her. Patient denied any symptoms at this time. Patient was well-appearing in no apparent distress. She denied chest pain shortness of breath headache nausea vomiting diarrhea constipation fever fatigue chills. - Related Data Home Medications Medication Instructions Recorded Confirmed Levothyroxine Sodium [Levoxyl] 75 mcg PO DAILY 06/05/19 04/01/21 Cetirizine HCl [Zyrtec] 10 mg PO HS 04/01/21 04/01/21 Allergies Allergy/AdvReac Type Severity Reaction Status Date / Time peanut Allergy Unknown Verified 04/01/21 10:57 tree nut Allergy Unknown Verified 04/01/21 10:57 Review of Systems ROS Statement: Those systems with pertinent positive or pertinent negative responses have been documented in the HPI. ROS Other: All systems not noted in ROS Statement are negative. Past Medical History Past Medical History: Cancer, Osteoarthritis (OA), Thyroid Disorder Additional Past Medical History / Comment(s): hx. breast cancer October 2009- radiation & surgery History of Any Multi-Drug Resistant Organisms: None Reported Past Surgical History: Breast Surgery, Hysterectomy, Joint Replacement Additional Past Surgical History / Comment(s): left breast lumpectomy w/few axillary lymph nodes removed, cyst removed from left forearm Past Anesthesia/Blood Transfusion Reactions: Postoperative Nausea & Vomiting (PONV) Past Psychological History: No Psychological Hx Reported Smoking Status: Never smoker Past Alcohol Use History: Rare Past Drug Use History: None Reported - Past Family History Mother Family Medical History: No Reported History General Exam Limitations: no limitations General appearance: alert, in no apparent distress, obese Head exam: Present: atraumatic, normocephalic, normal inspection Eye exam: Present: normal appearance, PERRL, EOMI. Absent: scleral icterus, conjunctival injection, periorbital swelling ENT exam: Present: normal exam, mucous membranes moist Neck exam: Present: normal inspection Respiratory exam: Present: normal lung sounds bilaterally. Absent: respiratory distress, wheezes, rales, rhonchi, stridor Cardiovascular Exam: Present: regular rate, normal rhythm, normal heart sounds. Absent: systolic murmur, diastolic murmur, rubs, gallop, clicks Extremities exam: Present: normal inspection, full ROM, normal capillary refill. Absent: tenderness, pedal edema, joint swelling, calf tenderness Neurological exam: Present: alert, oriented X3 Psychiatric exam: Present: normal affect, normal mood Skin exam: Present: warm, dry, intact, normal color. Absent: rash Course Vital Signs 04/01/21 09:53 Temperature 98.8 F Pulse Rate 93 Respiratory 20 Rate Blood Pressure 129/76 O2 Sat by Pulse 96 Oximetry Medical Decision Making - Medical Decision Making 65-year-old female with Covid like symptoms since Monday. Covid test, chest x-ray ordered. Covid test positive. Patient does meet criteria for monoclonal antibodies and wishes to undergo infusion. Patient is agreeable discharge home after infusion. Case discussed with Dr. Floyd, patient discharge home. - Lab Data Lab Results 04/01/21 Range/Units 10:20 Coronavirus (PCR) Detected A (Not Detectd) - Radiology Data Radiology results: report reviewed, image reviewed Chest x-ray: No evidence for acute pulmonary process. Disposition Clinical Impression: COVID Disposition: HOME SELF-CARE Condition: Stable Instructions (If sedation given, give patient instructions): Coronavirus Disease 2019 (COVID-19) Additional Instructions: Please return to the Emergency Department if symptoms worsen or any other concerns. Is patient prescribed a controlled substance at d/c from ED?: No Referrals: Johanne Armijo MD [Primary Care Provider] - 1-2 days Time of Disposition: 11:20
[2021-04-01] MEDS ORDERED: SODIUM CHLORIDE 0.9% 50 ML IVPB ONE (11:30)
[2021-04-01 11:44] VITALS: RESP 18
[2021-04-01] MEDS ORDERED: SOTROVIMAB (EUA) 500 MG in SODIUM CHLORIDE 0.9% 100 ML IVPB ONE (11:45)
[2021-04-01 13:40] VITALS: BP 115/60; PULSE 70; TEMP 99.3
== END 2021-04-01 13:41 | disposition home or self-care (01) ==
LOC: EC 09:43
DX: U07.1 COVID-19 (principal); E66.9 Obesity, unspecified; Z79.890 Hormone replacement therapy; Z68.26 Body mass index [BMI] 26.0-26.9, adult
CPT/HCPCS: 87635; 71046; 99284; Q0247

== ENCOUNTER 2021-08-16 09:48 | Emergency (ER) | payer MEDICARE, BC ==
[2021-08-16 09:59] VITALS: RESP 18
[2021-08-16] MEDS ORDERED: KETOROLAC 15 MG/ML 1 ML VIAL IM STA (10:28)
[2021-08-16] MEDS ORDERED: RX INFO: IV CONTRAST WAS GIVEN 1 EACH MISC MISCELLANE PRN (10:30)
[2021-08-16 11:01] LABS: Basophils # (A) 0.1 k/uL (0-0.2); Basophils % (A) 1 %; Eosinophils # (A) 0.3 k/uL (0-0.7); Eosinophils % (A) 2 %; HCT 38.2 % (34.0-46.0); HGB 12.5 gm/dL (11.4-16.0); Lymphocytes # (A) 1.5 k/uL (1.0-4.8); Lymphocytes % (A) 10 %; MCH 28.4 pg (25.0-35.0); MCHC 32.8 g/dL (31.0-37.0); MCV 86.6 fL (80.0-100.0); Monocytes # (A) 0.8 k/uL (0-1.0); Monocytes % (A) 6 %; Neutrophils # (A) 11.4 k/uL (1.3-7.7); Neutrophils % (A) 81 %; Platelet Count 368 k/uL (150-450); RDW 12.1 % (11.5-15.5); WBC 14.1 k/uL (3.8-10.6)
--- NOTE | 2021-08-16 11:10 | ED ---
ENT HPI - General Chief complaint: ENT Stated complaint: sorethroat Time Seen by Provider: 08/16/21 10:06 Source: patient, family, RN notes reviewed Mode of arrival: ambulatory Limitations: no limitations - History of Present Illness Initial comments: This is a 65-year-old female who presents the emergency department for recurrent ear infections and pain traveling down the throat. She states that since June she has been treated with antibiotics on 3 separate occasions for bilateral ear infections. She states that one of the antibiotics was amox icillin, however she cannot recall the others. She has had pain in the neck and throat since this began, however it is now progressing to the point where she is having trouble swallowing. Denies any fevers or chills. She has been treated with 2 courses of steroids, and states that she had some improvement in pain, however she did break out in a very painful rash on her face. She has an appointment with ENT on 08/27/2021, however she has not seen one yet. MD complaint: sore throat, ear pain Onset/Timin -: month(s) Location: R ear, L ear, throat Consistency: constant - Related Data Home Medications Medication Instructions Recorded Confirmed Levothyroxine Sodium [Levoxyl] 75 mcg PO DAILY 06/05/19 08/16/21 Cholecalciferol [Vitamin D3 (125 125 mcg PO DAILY 08/16/21 08/16/21 Mcg = 5000 Iu)] Fexofenadine/Pseudoephedrine 1 tab PO BID 08/16/21 08/16/21 [Shanti-D 12 Hour Tablet] Magnesium Oxide 400 mg PO DAILY 08/16/21 08/16/21 Montgomery-3 Fatty Acids [Montgomery-3] 1,000 mg PO DAILY 08/16/21 08/16/21 Previous Rx's Medication Instructions Recorded Diclofenac Sodium [Voltaren] 75 mg PO BID #20 tab 08/16/21 Allergies Allergy/AdvReac Type Severity Reaction Status Date / Time peanut Allergy Rash on Verified 08/16/21 12:16 legs tree nut Allergy Rash on Verified 08/16/21 12:16 legs methylprednisolone AdvReac Light Verified 08/16/21 12:16 [From Medrol] headed & skin on face turned red and was painful prednisone AdvReac Light Verified 08/16/21 12:16 headed & skin on face turned red and was painful Review of Systems ROS Statement: Those systems with pertinent positive or pertinent negative responses have been documented in the HPI. ROS Other: All systems not noted in ROS Statement are negative. Constitutional: Denies: fever, chills ENT: Reports: ear pain, throat pain Respiratory: Denies: cough, dyspnea Cardiovascular: Denies: chest pain, palpitations Gastrointestinal: Denies: abdominal pain, nausea, vomiting, diarrhea Genitourinary: Denies: urgency, dysuria Musculoskeletal: Denies: back pain Skin: Denies: rash Neurological: Denies: headache Past Medical History Past Medical History: Cancer, Osteoarthritis (OA), Thyroid Disorder Additional Past Medical History / Comment(s): hx. breast cancer October 2009- radiation & surgery History of Any Multi-Drug Resistant Organisms: None Reported Past Surgical History: Breast Surgery, Hysterectomy, Joint Replacement Additional Past Surgical History / Comment(s): left breast lumpectomy w/few axillary lymph nodes removed, cyst removed from left forearm Past Anesthesia/Blood Transfusion Reactions: Postoperative Nausea & Vomiting (PONV) Past Psychological History: No Psychological Hx Reported Smoking Status: Never smoker Past Alcohol Use History: Rare Past Drug Use History: None Reported - Past Family History Mother Family Medical History: No Reported History General Exam Limitations: no limitations General appearance: alert, in no apparent distress Head exam: Present: atraumatic, normocephalic, normal inspection ENT exam: Present: normal exam, normal oropharynx, mucous membranes moist Expanded TM/Canal exam: Effusion: Left TM, Right TM Mouth exam: Present: normal external inspection Throat exam: normal inspection. negative: tonsillar erythema, tonsillomegaly, tonsillar exudate, R peritonsillar mass, L peritonsillar mass Neck exam: Present: normal inspection, tenderness (right lateral aspect) Respiratory exam: Present: normal lung sounds bilaterally. Absent: respiratory distress, wheezes, rales, rhonchi, stridor Cardiovascular Exam: Present: regular rate, normal rhythm, normal heart sounds. Absent: systolic murmur, diastolic murmur, rubs, gallop, clicks Neurological exam: Present: alert, oriented X3, CN II-XII intact Psychiatric exam: Present: normal affect, normal mood Skin exam: Present: warm, dry, intact, normal color. Absent: rash Course Vital Signs 08/16/21 08/16/21 08/16/21 09:55 11:49 14:00 Temperature 98.2 F Pulse Rate 108 H 82 103 H Respiratory 18 18 18 Rate Blood Pressure 136/83 120/59 126/67 O2 Sat by Pulse 98 97 99 Oximetry 08/16/21 15:24 Temperature 99.0 F Pulse Rate 97 Respiratory 18 Rate Blood Pressure 130/70 O2 Sat by Pulse 97 Oximetry Medical Decision Making - Medical Decision Making This is a 65-year-old female who presents to the emergency department with bilateral ear pain and right-sided neck pain. Evaluation of the TMs revealed possible serous fluid and they were otherwise unremarkable. Patient was exquisitely tender on palpation of the right side of the neck. Computed tomography scan of the brain and soft tissue of the neck revealed a possible thyroiditis. TSH, free T3 and free T4 ordered. TSH was slightly low at 0.211 and T4 and T3 were within normal limits. I spoke with Dr. Mendoza, ear nose and throat, he reiterated that thyroids are not his specialty, however he states that pain from the neck can radiate to the ears, and states that if she does have a thyroid problem it is very possible that this is causing the persistent ear pain. Instructed the patient to contact her primary care's office for an appointment in the next 1-2 days for possible medication adjustment and discussing a referral to endocrinology for further thyroid evaluation. 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 Prescription for diclofenac sent to the pharmacy to help with symptoms. Patient had substantial relief with IM Toradol. She is advised to avoid taking diclofenac with any other anti-inflammatories such as ibuprofen, she can take Tylenol with this. Return precautions reviewed in depth, the patient is instructed to return to the emergency department with any new, worsening, or concerning symptoms. Patient verbalized understanding. This case was discussed in detail with the attending ED physician. Presentation, findings, and treatment plan discussed in detail as well. - Lab Data Result diagrams: 08/16/21 10:51 08/16/21 10:51 Lab Results 08/16/21 08/16/21 08/16/21 Range/Units 10:51 10:51 10:51 WBC 14.1 H (3.8-10.6) k/uL RBC 4.40 (3.80-5.40) m/uL Hgb 12.5 (11.4-16.0) gm/dL Hct 38.2 (34.0-46.0) % MCV 86.6 (80.0-100.0) fL MCH 28.4 (25.0-35.0) pg MCHC 32.8 (31.0-37.0) g/dL RDW 12.1 (11.5-15.5) % Plt Count 368 (150-450) k/uL MPV 7.0 Neutrophils % 81 % Lymphocytes % 10 % Monocytes % 6 % Eosinophils % 2 % Basophils % 1 % Neutrophils # 11.4 H (1.3-7.7) k/uL Lymphocytes # 1.5 (1.0-4.8) k/uL Monocytes # 0.8 (0-1.0) k/uL Eosinophils # 0.3 (0-0.7) k/uL Basophils # 0.1 (0-0.2) k/uL Sodium 136 L (137-145) mmol/L Potassium 4.2 (3.5-5.1) mmol/L Chloride 101 (98-107) mmol/L Carbon Dioxide 25 (22-30) mmol/L Anion Gap 10 mmol/L BUN 14 (7-17) mg/dL Creatinine 0.74 (0.52-1.04) mg/dL Est GFR (CKD-EPI)AfAm >90 (>60 ml/min/1.73 sqM) Est GFR (CKD-EPI)NonAf 86 (>60 ml/min/1.73 sqM) Glucose 117 H (74-99) mg/dL Calcium 9.0 (8.4-10.2) mg/dL Total Bilirubin 1.6 H (0.2-1.3) mg/dL AST 43 H (14-36) U/L ALT 45 H (4-34) U/L Alkaline Phosphatase 129 H (38-126) U/L Total Protein 6.8 (6.3-8.2) g/dL Albumin 3.7 (3.5-5.0) g/dL TSH 0.211 L (0.465-4.680) mIU/L Free T4 1.73 (0.78-2.19) ng/dL Free T3 pg/mL 3.4 (2.8-5.3) pg/ml - Radiology Data Radiology results: report reviewed, image reviewed Disposition Clinical Impression: Acute thyroiditis Disposition: HOME SELF-CARE Instructions (If sedation given, give patient instructions): Hyperthyroidism (ED) Additional Instructions: Return to the emergency department with any new, worsening, or concerning symptoms. Take 1-2 tablets of diclofenac up to twice daily for pain. Do not take ibuprofen or any other anti-inflammatories with this. You can supplement this with Tylenol. Contact the ENT and primary care provider office for a sooner appointment and ER follow-up. Prescriptions: Diclofenac Sodium [Voltaren] 75 mg PO BID #20 tab Is patient prescribed a controlled substance at d/c from ED?: No Referrals: None,Stated [Primary Care Provider] - 1-2 days
[2021-08-16 11:15] LABS: ALT 45 U/L (4-34); AST 43 U/L (14-36); African American GFR (CKD) >90 (>60 ml/min/1.73 sqM); Albumin 3.7 g/dL (3.5-5.0); Alkaline Phosphatase 129 U/L (38-126); Anion Gap 10 mmol/L; Blood Urea Nitrogen 14 mg/dL (7-17); Carbon Dioxide 25 mmol/L (22-30); Chloride 101 mmol/L (98-107); Glucose 117 mg/dL (74-99); Non-African American GFR(CKD) 86 (>60 ml/min/1.73 sqM); Potassium 4.2 mmol/L (3.5-5.1); Sodium 136 mmol/L (137-145); Total Bilirubin 1.6 mg/dL (0.2-1.3); Total Protein 6.8 g/dL (6.3-8.2)
--- NOTE | 2021-08-16 12:13 | CT ---
EXAMINATION TYPE: CT iac w con DATE OF EXAM: 08/16/2021 COMPARISON: No previous CT scan is available for comparison HISTORY: Sore throat and right ear pain. CT DLP: 2 5.2 mGycm (including the neck CT scan) Automated exposure control for dose reduction was used. CONTRAST: CT scan of the IACs is performed with IV Contrast, patient injected with 100 mL of Isovue 300. FINDINGS: The external auditory canals are patent bilaterally. Mastoid air cells show no evidence of abnormal opacification bilaterally. The middle ear ossicles are symmetric and unremarkable. There is no evidence of suspicious surrounding soft tissue density to suggest cholesteatoma. The scutum is preserved bilaterally. The cochlea and the semicircular canals are symmetric and unremarkable. Ves tibular aqueduct and internal carotid canal appear unremarkable. Temporomandibular joints are mainta ined bilaterally. IMPRESSION: Unremarkable CT scan of the temporal bones.
--- NOTE | 2021-08-16 12:30 | CT ---
EXAMINATION TYPE: CT soft tissue neck w con DATE OF EXAM: 08/16/2021 11:53 AM COMPARISON: No previous CT scan is available for comparison. HISTORY: Sore throat and right ear pain. CT DLP: 205.2 mGycm Automated exposure control for dose reduction was used. CONTRAST: CT scan of the neck is performed following with IV Contrast, patient injected with 100 mL of Isovue 3 00. Axial images are obtained, coronal and sagittal reformatted images are reviewed. FINDINGS: Diffusely enlarged hypoenhancing thyroid gland more on the right side with surrounding soft tissue sw elling/edema which may suggest acute thyroiditis, please correlate clinically. Hyperenhancing nodule is seen at the inferior aspect of the right thyroid lobe measuring 15 mm. Bilateral palatine tonsils calcifications. Otherwise unremarkable pharynx, larynx, trachea and visual ized portion of the esophagus. Symmetrical unremarkable parotid and mandibular salivary glands. No pathologically enlarged lymph nodes in the neck. Patent major neck vessels. Degenerative changes o f the cervical spine with anterolisthesis of T1 over T2, T2 over T3, T3 over T4 and C7 over T1. IMPRESSION: The above-described findings are suggestive of acute thyroiditis or other acute thyroid abnormality, please correlate clinically and with thyroid function tests. Follow-up ultrasound can be considered i f clinically required. Other incidental findings as described above.
[2021-08-16 13:31] LABS: T4, Free (Free Thyroxine) 1.73 ng/dL (0.78-2.19)
[2021-08-16] MEDS ORDERED: ACET/COD 300 MG/30 MG STARTER PACK 6 TAB BTL PO STA (15:04)
[2021-08-16 15:26] VITALS: BP 130/70; PULSE 97; TEMP 99
== END 2021-08-16 15:26 | disposition home or self-care (01) ==
LOC: EC 09:48
DX: E06.0 Acute thyroiditis (principal); E07.9 Disorder of thyroid, unspecified; Z91.010 Allergy to peanuts; Z88.8 Allergy status to other drugs, medicaments and biological substances; Z91.018 Allergy to other foods; Z79.890 Hormone replacement therapy
CPT/HCPCS: 36415; 84439; 84481; 80053; 84443; 85025; 84432; 70481; 70491; 99284; 96372; J1885; Q9967

== ENCOUNTER → 2021-11-08 | Outpatient (CLI) | payer MEDICARE, BC ==
--- NOTE | 2021-11-08 09:39 | BD ---
EXAMINATION TYPE: Axial Bone Density DATE OF EXAM: 11/08/2021 COMPARISON: 05/02/2019 CLINICAL HISTORY: 66 years year old Female. ICD-10 CODE: Z79.890 Height: 65 IN Weight: 151 LBS FRAX RISK QUESTIONS: History of Fracture in Adulthood: RT WRIST FX AGE 35 Secondary Osteoporosis: 3. Menopause before 45: PARTIAL HYST AGE 40 RISK FACTORS HISTORY OF: History of Wrist Fracture: RT WRIST AGE 35 Surgery to Hip(right): RT HIP REPLACEMENT 06/2019 Family History of Osteoporosis: YES MOTHER,/ SISTER Active: YES Postmenopausal woman: AGE 40 PARTIAL HYST MEDICATIONS: Thyroid Medications: YES Which medication: Levothyroxine How Lon+ YEARS Additional Medications: VIT D, LEVOTHYROXINE, OMEGA 3 Additional History: BREAST CANCER WITH RADIATION EXAM MEASUREMENTS: Bone mineral densitometry was performed using the Stratio System. Bone mineral density as measured about the Lumbar spine is: ----- L1-L4(G/cm2): 0.909 T Score Values are as follows: ----- L1: -1.9 ----- L2: -2.1 ----- L3: -2.2 ----- L4: -2.8 ----- L1-L4: -2.3 Bone mineral density has: Increased 2.1% since study of: 05/02/2019 RT HIP REPLACEMENT 06/2019 Bone mineral density about the L hip (g/cm2): 0.846 T Score values are as follows: -----L Neck: -1.4 -----L Total: -1.6 Bone mineral density has: Decreased -3.2% since study of: 05/02/2019 FRAX%s: The graph provided illustrates a 14.8 chance for a major osteoporotic fx and a 1.5 chance for the hips probability for fx in 10 years time. IMPRESSION: Osteopenia (T Score between -2.5 and -1). There is slightly increased risk of fracture and the patient may be considered for treatment. Re-Screen 2-5 years. NOTE: T-SCORE=SD OF THE YOUNG ADULT MEAN.
--- NOTE | 2021-11-09 07:53 | MM ---
Reason for Exam: Screening (asymptomatic). Last screening mammogram was performed 12 month(s) ago. Patient History: Menarche at age 13. First Full-Term at age 20. Hysterectomy at age 40. Breast cancer, left, age 54. Previous chest radiation therapy at age 54. 06/2006, Excisional Biopsy on the Left side. 2003, Cyst Aspiration on the Left side. 2002, Benign Cyst Aspiration on the left side. 11/30/2009, Malignant Excisional Biopsy on the left side. 11/19/2009, Malignant Core Biopsy on the left side. 04/08/2005, Core Biopsy on the Left side. 2009, Radiation Therapy on the left side. Radiation Therapy, left. Maternal cousin had breast cancer, age 40. Prior Study Comparison: 10/29/2018 Bilateral Diagnostic Mammogram, [facility]. 10/31/2019 Bilateral Diagnostic Mammogram, [facility]. 11/03/2020 Bilateral Diagnostic Mammogram, [facility]. Tissue Density: The breast tissue is heterogeneously dense. This may lower the sensitivity of mammography. Findings: Analyzed By CAD. There is no suspicious group of microcalcifications or new suspicious mass in either breast. Overall Assessment: Negative, BI-RAD 1 Management: Screening Mammogram of both breasts in 1 year. A clinical breast exam by your physician is recommended on an annual basis and results should be correlated with mammographic findings. Electronically signed and approved by: Phu Green M.D. Radiologis
== END | disposition home or self-care (01) ==
LOC: RADMAMWWP 07:50
PROVIDERS: ATTEND Internal Medicine Hematology & Oncology
DX: Z12.31 Encounter for screening mammogram for malignant neoplasm of breast (principal); M85.89 Other specified disorders of bone density and structure, multiple sites; Z78.0 Asymptomatic menopausal state
CPT/HCPCS: 77063; 77067; 77080

== ENCOUNTER 2022-10-16 08:37 | Emergency (ER) | payer MEDICARE, BC ==
[2022-10-16 08:43] VITALS: RESP 18; TEMP 97
[2022-10-16] MEDS ORDERED: KETOROLAC 15 MG/ML 1 ML VIAL IM STA (09:01)
--- NOTE | 2022-10-16 09:05 | ED ---
Extremity Problem HPI - General Chief complaint: Extremity Problem,Nontraumatic Stated complaint: Rt knee pain Time Seen by Provider: 10/16/22 08:53 Source: patient, RN notes reviewed, old records reviewed Mode of arrival: ambulatory Limitations: no limitations - History of Present Illness Initial comments: 67-year-old female presents to the emergency room with complaints of right knee pain since 4:00 yesterday afternoon. Patient states that she was walking when she developed pain. Denies any falls or injuries. Denies any fevers. No joint swelling. No calf pain. States did have right hip surgery 3 years ago, also history of osteoarthritis MD Complaint: joint pain (right knee) -: hour(s) (17) Location: right, knee History of Same: No Radiation: none Severity scale (1-10): 6 Quality: aching, sharp Consistency: intermittent Improves with: immobilization Worsens with: weight bearing, walking Associated Symptoms: denies other symptoms - Related Data Home Medications Medication Instructions Recorded Confirmed Levothyroxine Sodium [Levoxyl] 75 mcg PO DAILY 06/05/19 08/16/21 Cholecalciferol [Vitamin D3 (125 125 mcg PO DAILY 08/16/21 08/16/21 Mcg = 5000 Iu)] Fexofenadine/Pseudoephedrine 1 tab PO BID 08/16/21 08/16/21 [Shanti-D 12 Hour Tablet] Magnesium Oxide 400 mg PO DAILY 08/16/21 08/16/21 Caldwell-3 Fatty Acids [Caldwell-3] 1,000 mg PO DAILY 08/16/21 08/16/21 Previous Rx's Medication Instructions Recorded Diclofenac Sodium [Voltaren] 75 mg PO BID #20 tab 08/16/21 Allergies Allergy/AdvReac Type Severity Reaction Status Date / Time peanut Allergy Rash on Verified 10/16/22 08:43 legs tree nut Allergy Rash on Verified 10/16/22 08:43 legs methylprednisolone AdvReac Light Verified 10/16/22 08:43 [From Medrol] headed & skin on face turned red and was painful prednisone AdvReac Light Verified 10/16/22 08:43 headed & skin on face turned red and was painful Review of Systems ROS Statement: Those systems with pertinent positive or pertinent negative responses have been documented in the HPI. ROS Other: All systems not noted in ROS Statement are negative. Past Medical History Past Medical History: Cancer, Osteoarthritis (OA), Thyroid Disorder Additional Past Medical History / Comment(s): hx. breast cancer October 2009- radiation & surgery History of Any Multi-Drug Resistant Organisms: None Reported Past Surgical History: Breast Surgery, Hysterectomy, Joint Replacement Additional Past Surgical History / Comment(s): left breast lumpectomy w/few axillary lymph nodes removed, cyst removed from left forearm Past Anesthesia/Blood Transfusion Reactions: Postoperative Nausea & Vomiting (PONV) Past Psychological History: No Psychological Hx Reported Smoking Status: Never smoker Past Alcohol Use History: Rare Past Drug Use History: None Reported - Past Family History Mother Family Medical History: No Reported History General Exam Limitations: no limitations General appearance: alert, in no apparent distress Head exam: Present: atraumatic Eye exam: Present: normal appearance. Absent: scleral icterus, periorbital swelling Neck exam: Present: full ROM. Absent: meningismus Respiratory exam: Absent: respiratory distress, accessory muscle use Cardiovascular Exam: Present: regular rate Right Knee exam: Present: full ROM, full knee extension. Absent: tenderness, swelling, abrasion, laceration, ecchymosis, deformity, crepitus, dislocation, erythema, effusion, pain w/ pronation/supination, pain/laxity with valgus, pain/laxity with varus Lower Leg exam: Present: full ROM. Absent: tenderness, swelling Ankle exam: Present: full ROM. Absent: tenderness, swelling Foot/Toe exam: Present: full ROM. Absent: tenderness, swelling Neurovascular tendon exam: Present: no vascular compromise. Absent: abnormal cap refill, extremity cold to touch, pallor, decreased fine/light touch, foot drop, peroneal nerve deficit, significant pain with passive ROM of distal joint Neurological exam: Present: alert, oriented X3 Psychiatric exam: Present: normal affect, normal mood Skin exam: Present: warm, dry, normal color. Absent: cyanosis, diaphoretic, petechiae, pallor Course Vital Signs 10/16/22 08:40 Temperature 97 F L Pulse Rate 62 Respiratory 18 Rate Blood Pressure 134/74 O2 Sat by Pulse 98 Oximetry Medical Decision Making - Medical Decision Making Was pt. sent in by a medical professional or institution (, PA, POST HOLE DIGGER, urgent care, hospital, or long term...) When possible be specific @ -No Did you speak to anyone other than the patient for history (EMS, parent, family, police, friend...)? What history was obtained from this source @ -No Did you review nursing and triage notes (agree or disagree)? Why? @ -I reviewed and agree with nursing and triage notes Were old charts reviewed (outside hosp., previous admission, EMS record, old EKG, old radiological studies, urgent care reports/EKG's, long term records)? Report findings @ -No old charts were reviewed Differential Diagnosis (chest pain, altered mental status, abdominal pain women, abdominal pain men, vaginal bleeding, weakness, fever, dyspnea, syncope, headache, dizziness, GI bleed, back pain, seizure, CVA, palpatations, mental health, musculoskeletal)? @ -Knee effusion, fracture, dislocation, arthritis, septic joint, ligamentous injury EKG interpreted by me (3pts min.). @ -n/a X-rays interpreted by me (1pt min.). @ -yes X-ray of the right knee interpreted by me shows no evidence of fracture or dislocation. No effusion. CT interpreted by me (1pt min.). @ -None done U/S interpreted by me (1pt. min.). @ -None done What testing was considered but not performed or refused? (CT, X-rays, U/S, labs)? Why? @ -None What meds were considered but not given or refused? Why? @ -None Did you discuss the management of the patient with other professionals (professionals i.e. , PA, POST HOLE DIGGER, lab, RT, psych nurse, social sciences department chair, blow down operator, teacher, chief sales officer, trimming caser)? Give summary @ -No Was smoking cessation discussed for >3mins.? @ -No Was critical care preformed (if so, how long)? @ -No Were there social determinants of health that impacted care today? How? (Homelessness, low income, unemployed, alcoholism, drug addiction, transportation, low edu. Level, literacy, decrease access to med. care, usp, rehab)? @ -No Was there de-escalation of care discussed even if they declined (Discuss DNR or withdrawal of care, Hospice)? DNR status @ -No What co-morbidities impacted this encounter? (DM, HTN, Smoking, COPD, CAD, Cancer, CVA, ARF, Chemo, Hep., AIDS, mental health diagnosis, sleep apnea, morbid obesity)? @ -Hypothyroid, osteoarthritis Was patient admitted / discharged? Hospital course, mention meds given and route, prescriptions, significant lab abnormalities, going to OR and other pertinent info. @ -Discharged 67-year-old female presents to the emergency room with complaints of right knee pain since 4:00 yesterday afternoon. Patient states that she was walking when she developed pain. Denies any falls or injuries. Denies any fevers. No joint swelling. No calf pain. States did have right hip surgery 3 years ago, also history of osteoarthritis She was given a shot of Toradol with some improvement. Patient does have range of motion on physical exam. No Tenderness or swelling. Neurovascularly intact. Radiologist interpretation no acute osseous pathology. Mild tricompartmental osteoarthritic changes. Patient was offered a knee immobilizer and declined. She was encouraged to use her cane when walking to prevent any falls. Follow-up with Dr. Larson her orthopedic doctor tomorrow. Continue Tylenol and Motrin and Blue Emu topically. She was also provided Tylenol 3 starter pack for any worsening pain. She has agreeable to this plan of care. Case discussed with Dr. Huratdo. Undiagnosed new problem with uncertain prognosis? @ -No Drug Therapy requiring intensive monitoring for toxicity (Heparin, Nitro, Insulin, Cardizem)? @ -No Were any procedures done? @ -No Diagnosis/symptom? @ -Internal derangement right knee Acute, or Chronic, or Acute on Chronic? @ -Acute Uncomplicated (without systemic symptoms) or Complicated (systemic symptoms)? @ -Uncomplicated Side effects of treatment? @ -No Exacerbation, Progression, or Severe Exacerbation? @ -No Poses a threat to life or bodily function? How? (Chest pain, USA, PA, pneumonia, PE, COPD, DKA, ARF, appy, cholecystitis, CVA, Diverticulitis, Homicidal, Suici felicitas, threat to staff... and all critical care pts) @ -No Disposition Clinical Impression: Internal derangement of right knee Disposition: HOME SELF-CARE Condition: Good Instructions (If sedation given, give patient instructions): Knee Pain (ED) Additional Instructions: Continue taking Tylenol and Motrin as needed for pain. Use the blue emu topically to help with pain relief. You can also use a Tylenol 3 as provided fo r any worsening pain. Follow-up with orthopedic Dr. Larson tomorrow. Use your cane for support and to prevent falls. Return to the emergency room with any new or concerning symptoms. Is patient prescribed a controlled substance at d/c from ED?: No Referrals: Consuelo Keyes MD [Primary Care Provider] - 1-2 days Time of Disposition: 09:57
--- NOTE | 2022-10-16 09:52 | XR ---
EXAMINATION TYPE: XR knee complete RT DATE OF EXAM: 10/16/2022 9:29 AM INDICATION: Patient age:Female; 67 years old; Reason for study: pain with weightbearing no injury; PHH. COMPARISON: None. TECHNIQUE: The Right knee(s) was examined in Frontal, lateral and oblique projections. FINDINGS: No evidence of any acute osseous pathology, soft tissue swelling, or joint effusion is no kelly. Tricompartmental osteophyte formation involving the femoral condyles, tibial plateau and patella. Mi ld joint space narrowing. IMPRESSION: 1. No acute osseous pathology. 2. Mild tricompartmental osteoarthritic changes.
[2022-10-16] MEDS ORDERED: ACET/COD 300 MG/30 MG STARTER PACK 6 TAB BTL PO STA (09:57)
[2022-10-16 10:08] VITALS: BP 126/71; PULSE 57
== END 2022-10-16 10:09 | disposition home or self-care (01) ==
LOC: EC 08:37
DX: M23.91 Unspecified internal derangement of right knee (principal); E03.9 Hypothyroidism, unspecified; Z79.890 Hormone replacement therapy; Z91.010 Allergy to peanuts; Z91.018 Allergy to other foods; Z88.8 Allergy status to other drugs, medicaments and biological substances
CPT/HCPCS: 73562; 99283; 96372; J1885

== ENCOUNTER → 2022-10-17 | Outpatient (CLI) | payer MEDICARE, BC ==
--- NOTE | 2022-10-17 13:06 | US ---
EXAMINATION TYPE: US extremity nonvasc mass LT DATE OF EXAM: 10/17/2022 COMPARISON: NONE CLINICAL INDICATION: Female, 67 years old with history of R22.32 LT TRICEP NODULE; Lump left tricep a cesar x 2 months. TECHNIQUE: Grayscale ultrasound imaging of the left triceps in the area of palpable abnormality. FINDINGS: Scanned area of concern left tricep posteriorly. No abnormalities seen. IMPRESSION: Area of palpable abnormality does not correlate with mass or organizing fluid collection . Consider MRI for further evaluation of the soft tissue structures.
== END | disposition home or self-care (01) ==
LOC: RADUSWWP 12:18
PROVIDERS: ATTEND Family Medicine
DX: R22.32 Localized swelling, mass and lump, left upper limb (principal)

== ENCOUNTER → 2022-11-08 | Outpatient (CLI) | payer MEDICARE, BC ==
--- NOTE | 2022-11-13 10:28 | MR ---
EXAMINATION TYPE: MR knee RT wo con DATE OF EXAM: 11/08/2022 COMPARISON: None HISTORY: Right knee pain for 3 weeks. TECHNIQUE: Multiplanar, multisequence imaging of the right knee is performed without IV contrast. FINDINGS: There is no bone contusion or fracture. There is moderate osteoarthritic change of the medial compartment and patellofemoral compartment wher e there is moderate to marked cartilaginous thinning and chondromalacia. There are subchondral change s within the patella. There is a complex tear of the body and posterior horn of the medial meniscus. The lateral meniscus i s intact. The cruciate and collateral ligaments are intact. There is a small joint effusion. IMPRESSION: 1. Moderate osteoarthritic change of the medial compartment and patellofemoral compartment. 2. Complex tear of the body and posterior horn of the medial meniscus. 3. No injury of the collateral and cruciate ligaments. 4. Small joint effusion. 5. No bone contusion or fracture.
== END | disposition home or self-care (01) ==
LOC: RADMRIMAIN 20:15
PROVIDERS: ATTEND Orthopaedic Surgery
DX: M17.11 Unilateral primary osteoarthritis, right knee (principal); S83.231A Complex tear of medial meniscus, current injury, right knee, initial encounter; M25.461 Effusion, right knee; X58.XXXA Exposure to other specified factors, initial encounter

== ENCOUNTER → 2022-11-09 | Outpatient (CLI) | payer MEDICARE, BC ==
--- NOTE | 2022-11-10 20:16 | MM ---
Reason for Exam: Screening (asymptomatic). Last screening mammogram was performed 12 month(s) ago. Patient History: Menarche at age 13. First Full-Term at age 20. Hysterectomy at age 40. Patient has history of breast feeding. Breast cancer, left, age 54. Previous chest radiation therapy at age 54. 06/2006, Excisional Biopsy on the Left side. 2003, Cyst Aspiration on the Left side. 2002, Benign Cyst Aspiration on the left side. 11/30/2009, Malignant Excisional Biopsy on the left side. 11/19/2009, Malignant Core Biopsy on the left side. 04/08/2005, Core Biopsy on the Left side. 2009, Radiation Therapy on the left side. Radiation Therapy, left. Maternal cousin had breast cancer, age 40. Prior Study Comparison: 10/31/2019 Bilateral Diagnostic Mammogram, [facility]. 11/03/2020 Bilateral Diagnostic Mammogram, [facility]. 11/08/2021 Bilateral MG 3D screening mammo w/cad, [facility]. Tissue Density: The breast tissue is heterogeneously dense. This may lower the sensitivity of mammography. Findings: Analyzed By CAD. Postsurgical and posttreatment changes left breast. There is an oval area of nodular asymmetric density posterior upper outer quadrant right breast which appears larger and more defined for which further evaluation is recommended. Overall Assessment: Incomplete: need additional imaging evaluation, BI-RAD 0 Management: Diagnostic Mammogram of the right breast. Diagnostic Breast Ultrasound of the right breast. Additional views to include 3-D XCCL, spot 3-D MLO, and 3-D lateral views (including far posterior tissue). Subsequent targeted right breast ultrasound. [facility] will attempt to contact patient to return for supplemental views and ultrasound if indicated. Electronically signed and approved by: Conor Duggan M.D. Radiologist
== END | disposition home or self-care (01) ==
LOC: RADMAMWWP 12:27
PROVIDERS: ATTEND Internal Medicine Hematology & Oncology
DX: Z12.31 Encounter for screening mammogram for malignant neoplasm of breast (principal); Z80.3 Family history of malignant neoplasm of breast
CPT/HCPCS: 77063; 77067

== ENCOUNTER → 2022-11-15 | Outpatient (CLI) | payer MEDICARE, BC ==
[2022-11-15 15:31] LABS: BUN/Creat Ratio 16.11 Ratio (12.00-20.00); Blood Urea Nitrogen 14.5 mg/dL (9.0-27.0); Calcium 10.2 mg/dL (8.7-10.3); Chloride 103 mmol/L (96-109); Glucose 89 mg/dL (70-110); Potassium 5.1 mmol/L (3.5-5.5); Sodium 140 mmol/L (135-145)
[2022-11-15 16:16] LABS: Basophils # (A) 0.06 X 10*3/uL (0.00-0.10); Eosinophils # (A) 0.17 X 10*3/uL (0.04-0.35); Eosinophils % (A) 2.9 %; HCT 42.9 % (37.2-46.3); HGB 13.7 d/dL (12.0-15.0); Lymphocytes # (A) 2.15 X 10*3/uL (0.90-5.00); Lymphocytes % (A) 36.1 %; MCH 28.4 pg (27.0-32.0); MCHC 31.9 d/dL (32.0-37.0); Mean Platelet Volume 10.1 FL (9.5-12.2); Monocytes # (A) 0.53 X 10*3/uL (0.20-1.00); Monocytes % (A) 8.9 %; NRBC Per 100 WBC 0 X 10*3/uL (0.00-0.01); Neutrophils # (A) 3.02 X 10*3/uL (1.80-7.70); Neutrophils % (A) 50.8 %; Platelet Count 320 X 10*3/uL (140-440); RBC 4.82 X 10*6/uL (4.10-5.20); RDW 12.4 % (11.5-14.5); WBC 5.95 X 10*3/uL (4.50-10.00)
== END | disposition home or self-care (01) ==
LOC: LABPAT 08:20
PROVIDERS: ATTEND Orthopaedic Surgery
DX: Z01.812 Encounter for preprocedural laboratory examination (principal); M23.91 Unspecified internal derangement of right knee; I44.0 Atrioventricular block, first degree; R94.31 Abnormal electrocardiogram [ECG] [EKG]
CPT/HCPCS: 80048; 85025; 93005

== ENCOUNTER → 2022-11-15 | Outpatient (CLI) | payer MEDICARE, BC ==
--- NOTE | 2022-11-15 07:47 | MM ---
Reason for Exam: Additional evaluation requested from abnormal screening. Last screening mammogram was performed less than 1 month ago. Patient History: Menarche at age 13. First Full-Term at age 20. Hysterectomy at age 40. Patient has history of breast feeding. Breast cancer, left, age 54. Previous chest radiation therapy at age 54. 06/2006, Excisional Biopsy on the Left side. 2003, Cyst Aspiration on the Left side. 2002, Benign Cyst Aspiration on the left side. 11/30/2009, Malignant Excisional Biopsy on the left side. 11/19/2009, Malignant Core Biopsy on the left side. 04/08/2005, Core Biopsy on the Left side. 2009, Radiation Therapy on the left side. Radiation Therapy, left. Maternal cousin had breast cancer, age 40. Prior Study Comparison: 10/25/1995 Screening Mammogram, Unknown. 10/21/2010 Bilateral Diagnostic Mammogram, [facility]. 05/03/2011 Left Diagnostic Ultrasound, [facility]. 11/01/2011 Bilateral Diagnostic Mammogram, [facility]. 11/05/2012 Bilateral Diagnostic Mammogram, [facility]. 11/06/2013 Bilateral Diagnostic Mammogram, [facility]. 11/07/2014 Bilateral Diagnostic Mammogram, [facility]. 11/23/2015 Bilateral Diagnostic Mammogram, [facility]. 11/29/2016 Bilateral Diagnostic Mammogram, [facility]. 10/25/2017 Bilateral Diagnostic Mammogram, [facility]. 10/25/2017 Right Diagnostic Ultrasound, [facility]. 10/29/2018 Bilateral Diagnostic Mammogram, [facility]. 10/31/2019 Bilateral Diagnostic Mammogram, [facility]. 11/03/2020 Bilateral Diagnostic Mammogram, [facility]. 11/08/2021 Bilateral MG 3D screening mammo w/cad, [facility]. 11/09/2022 Bilateral MG 3D screening mammo w/cad, [facility]. Tissue Density: Right: The breast tissue is heterogeneously dense. This may lower the sensitivity of mammography. Findings: Analyzed By CAD. There is a 1.2 x 0.6 cm lobulated elongated asymmetric density which persists posteriorly, likely 10:00 position. However, the finding is not clearly identified on the CC view. Further ultrasound evaluation is recommended. Overall Assessment: Incomplete: need additional imaging evaluation, BI-RAD 0 Management: Diagnostic Breast Ultrasound of the left breast. Electronically signed and approved by: Conor Duggan M.D. Radiologist
--- NOTE | 2022-11-15 08:17 | USB ---
Reason for Exam: Additional evaluation requested from abnormal screening. Patient History: Menarche at age 13. First Full-Term at age 20. Hysterectomy at age 40. Patient has history of breast feeding. Breast cancer, left, age 54. Previous chest radiation therapy at age 54. 06/2006, Excisional Biopsy on the Left side. 2003, Cyst Aspiration on the Left side. 2002, Benign Cyst Aspiration on the left side. 11/30/2009, Malignant Excisional Biopsy on the left side. 11/19/2009, Malignant Core Biopsy on the left side. 04/08/2005, Core Biopsy on the Left side. 2009, Radiation Therapy on the left side. Radiation Therapy, left. Maternal cousin had breast cancer, age 40. Prior Study Comparison: 10/25/2017 Right Diagnostic Ultrasound, [facility]. 11/03/2020 Bilateral Diagnostic Mammogram, [facility]. 11/08/2021 Bilateral MG 3D screening mammo w/cad, [facility]. 11/09/2022 Bilateral MG 3D screening mammo w/cad, [facility]. Findings: The whole breast of the right breast, the axilla of the right breast and the retroareolar of the right breast were scanned. A complete US of all four quadrants of the breast, axilla, and retro-areolar region were reviewed. At the 10:00 position, 7 cm from the nipple, there is an oval, mildly lobulated, heterogeneous area measuring 1.3 x 1.2 x 0.8 cm. Probable mammographic correlate. Tissue sampling with clip placement is recommended. No other solid or cystic lesion or axillary lymphadenopathy. Overall Assessment: Suspicious, BI-RAD 4 Management: Ultrasound Core Biopsy of the right breast. Electronically signed and approved by: Conor Duggan M.D. Radiologist
== END | disposition home or self-care (01) ==
LOC: RADMAMWWP 07:22
PROVIDERS: ATTEND Internal Medicine Hematology & Oncology
DX: R92.8 Other abnormal and inconclusive findings on diagnostic imaging of breast (principal); Z85.3 Personal history of malignant neoplasm of breast; Z80.3 Family history of malignant neoplasm of breast
CPT/HCPCS: 77065; 76641; G0279; 77061

== ENCOUNTER → 2022-11-21 | Day surgery (SDC) | payer MEDICARE, BC ==
--- NOTE | 2022-11-21 13:50 | MM ---
Reason for Exam: Post Procedure Mammogram. Last screening mammogram was performed less than 1 month ago. Patient History: Menarche at age 13. First Full-Term at age 20. Hysterectomy at age 40. Patient has history of breast feeding. Breast cancer, left, age 54. Previous chest radiation therapy at age 54. 06/2006, Excisional Biopsy on the Left side. 2003, Cyst Aspiration on the Left side. 2002, Benign Cyst Aspiration on the left side. 11/30/2009, Malignant Excisional Biopsy on the left side. 11/19/2009, Malignant Core Biopsy on the left side. 04/08/2005, Core Biopsy on the Left side. 2009, Radiation Therapy on the left side. Radiation Therapy, left. Maternal cousin had breast cancer, age 40. Prior Study Comparison: 11/08/2021 Bilateral MG 3D screening mammo w/cad, [facility]. 11/09/2022 Bilateral MG 3D screening mammo w/cad, [facility]. 11/15/2022 Right MG 3D work up w/cad RT, [facility]. Tissue Density: Right: The breast tissue is heterogeneously dense. This may lower the sensitivity of mammography. Overall Assessment: Post procedure mammogram for marker placement Management: Post Mammogram for Paco Placement of the right breast. Electronically signed and approved by: Chris Pagan DO
--- NOTE | 2022-11-24 13:54 | USB ---
Prior Study Comparison: 11/08/2021 Bilateral MG 3D screening mammo w/cad, [facility]. 11/09/2022 Bilateral MG 3D screening mammo w/cad, [facility]. 11/15/2022 Right MG 3D work up w/cad RT, [facility]. Pathology Description: Location: 10 o'clock. Needle Type: Mammotome Cores: 5 Skin Nicks: 1 The procedure of ultrasound guided core biopsy was explained to the patient. Benefits, alternatives, and risks were discussed. An informed consent was then obtained. The patient was placed in supine positioning for imaging and for the procedure. The overlying skin was prepped and draped in usual sterile fashion. Lidocaine buffered with bicarbonate was used as anesthetic into the skin and subcutaneous tissue up to area of concern in the right breast 10:00 7 cm from the nipple. A naila was made with surgical scalpel. Under ultrasound guidance, a 12-gauge vacuum assisted biopsy gun device was used to obtain 5 core samples. Following this, a biopsy clip was left in lesion. The patient tolerated the procedure well without any immediate complication. The patient was kept in the radiology department for short stay after the procedure and then discharged home in stable condition. Postprocedure mammogram: The patient was transferred to mammography for physician ordered post procedure mammogram for clip placement verification. Impression: Successful, uncomplicated ultrasound guided core biopsy of area of concern in the right breast, full pathology results to follow. Pathology Results: Result: Malignant, Invasive ductal carcinoma. RIGHT BREAST, ULTRASOUND GUIDED CORE BIOPSY: Invasive ductal carcinoma with high grade features (see Surgical Pathology Cancer Case Summary and comment). Overall Assessment: Malignant Management: Surgical Consultation of the right breast. Electronically signed and approved by: Chris Pagan DO
== END ==
LOC: RADUSWWP 12:31
PROVIDERS: ATTEND Internal Medicine Hematology & Oncology
DX: C50.911 Malignant neoplasm of unspecified site of right female breast (principal)
CPT/HCPCS: 88305; 88342; 88341; 77065; 19083; A4648

== ENCOUNTER 2022-12-14 07:39 | Day surgery (SDC) | payer MEDICARE, BC ==
[2022-12-14 08:31] VITALS: RESP 18; TEMP 98
[2022-12-14 10:02] VITALS: BP 147/73; PULSE 58
--- NOTE | 2022-12-14 10:24 | US ---
ULTRASOUND GUIDED CORE BIOPSY RIGHT AXILLARY LYMPH NODE: CLINICAL HISTORY: Right axillary lymph node FINDINGS: The procedure was explained to the patient. The risks, complications, benefits and alternatives were discussed and any questions were answered. Informed consent was obtained. Patient was placed supin e on the ultrasound table and prepped and draped in the usual sterile fashion. Utilizing a 18 gauge core biopsy needle, five passes were made into the right axillary lymph node. Patient was stable throughout the procedure. Pathology is pending. All elements of maximal barrier and sterile technique were utilized. IMPRESSION: 1. Successful ultrasound guided core biopsy right axillary lymph node.
== END 2022-12-14 09:30 | disposition home or self-care (01) ==
LOC: RADPROMAIN 07:39
PROVIDERS: ATTEND Internal Medicine Hematology & Oncology
DX: C50.411 Malignant neoplasm of upper-outer quadrant of right female breast (principal)
CPT/HCPCS: 38505; 76942; 88305; 88342

== ENCOUNTER → 2023-01-10 | Outpatient (CLI) | payer MEDICARE, BC ==
--- NOTE | 2023-01-11 07:50 | CA ---
Transthoracic Echo Report Name: Nadia Avila Age: 67 Gender: F : 1955 Exam Date: 01/10/2023 17:54 Exam Location: [facility] Ht (in): 66 Wt (lb): 155 Ordering Physician: Fabrice Kwong MD Attending/Referring Phys: Cleat Blanker Meka Segovia [facility] Procedure CPT: Indications: Z01.818 pre chemo Cardiac Hx: Technical Quality: Fair Contrast 1: Total Dose (mL): Contrast 2: Total Dose (mL): MEASUREMENTS (Male / Female) Normal Values 2D ECHO LV Diastolic Diameter PLAX 4.0 cm 4.2 - 5.9 / 3.9 - 5.3 cm LV Systolic Diameter PLAX 2.7 cm IVS Diastolic Thickness 0.8 cm 0.6 - 1.0 / 0.6 - 0.9 cm LVPW Diastolic Thickness 0.9 cm 0.6 - 1.0 / 0.6 - 0.9 cm LV Relative Wall Thickness 0.4 LV Diastolic Volume MOD BP 49.6 cm??? 67 - 155 / 56 - 104 cm??? LV Systolic Volume MOD BP 20.8 cm??? 22 - 58 / 19 - 49 cm??? LV Ejection Fraction MOD BP 58.1 % >= 55 % LV Cardiac Index MOD BP 950.7 cm???/min???m??? LV Diastolic Volume MOD 4C 43.9 cm??? LV Systolic Volume MOD 4C 19.9 cm??? LV Ejection Fraction MOD 4C 54.8 % LV Cardiac Index MOD 4C 793.9 cm???/min???m??? LV Diastolic Length 4C 7.0 cm LV Systolic Length 4C 5.9 cm LV Diastolic Volume MOD 2C 55.6 cm??? LV Systolic Volume MOD 2C 21.7 cm??? LV Ejection Fraction MOD 2C 61.0 % LV Cardiac Index MOD 2C 1117.3 cm???/min???m??? LV Diastolic Length 2C 7.3 cm LV Systolic Length 2C 6.2 cm LA Volume 29.6 cm??? 18 - 58 / 22 - 52 cm??? Ascending Aorta Diameter 2.8 cm M-MODE Aortic Root Diameter MM 2.7 cm LA Systolic Diameter MM 3.7 cm LA Ao Ratio MM 1.3 AV Cusp Separation MM 2.2 cm DOPPLER AV Peak Velocity 98.8 cm/s AV Peak Gradient 3.9 mmHg AV Mean Velocity 68.7 cm/s AV Mean Gradient 2.1 mmHg AV Velocity Time Integral 18.3 cm LVOT Peak Velocity 91.8 cm/s LVOT Peak Gradient 3.4 mmHg LVOT Velocity Time Integral 18.2 cm MV Area PHT 3.9 cm??? Mitral E Point Velocity 56.2 cm/s Mitral A Point Velocity 57.8 cm/s Mitral E to A Ratio 1.0 MV Deceleration Time 196.3 ms LV E' Lateral Velocity 8.4 cm/s Mitral E to LV E' Lateral Ratio 6.7 LV E' Septal Velocity 8.4 cm/s Mitral E to LV E' Septal Ratio 6.7 TR Peak Velocity 286.7 cm/s TR Peak Gradient 32.9 mmHg Right Atrial Pressure 8.0 mmHg Pulmonary Artery Systolic Pressu 40.9 mmHg Right Ventricular Systolic Press 40.9 mmHg FINDINGS Left Ventricle Normal left ventricular size, wall thickness, systolic function with no obvious regional wall motion abnormalities. The ejection fraction is visually estimated at 55-60%. Right Ventricle The right ventricle is normal in size and function. Mild pulmonary hypertension. Right Atrium The right atrium is normal in size. Left Atrium The left atrium is normal in size. Mitral Valve Structurally normal mitral valve. Mild mitral regurgitation. Aortic Valve Structurally normal aortic valve without significant sclerosis or stenosis. There is no aortic regurgitation. Tricuspid Valve Structurally normal tricuspid valve. [id number] tricuspid regurgitation. Pulmonic Valve Structurally normal pulmonic valve without significant stenosis. There is physiologic pulmonic regurgitation. Pericardium Minimal pericardial effusion (normal variant). Aorta Normal aortic root dimension. CONCLUSIONS 1. Normal left ventricular size and systolic function 2. Mild mitral with mild to moderate tricuspid regurgitation and mild pulmonary hypertension Previewed by: Dr. Rene Costa MD (Electronically Signed) Final Date: 11 January 2023 07:49
== END | disposition home or self-care (01) ==
LOC: RADECHMAIN 17:52
PROVIDERS: ATTEND Internal Medicine Hematology & Oncology
DX: Z01.818 Encounter for other preprocedural examination (principal); I08.1 Rheumatic disorders of both mitral and tricuspid valves; I27.20 Pulmonary hypertension, unspecified
CPT/HCPCS: 93306

== ENCOUNTER → 2023-03-27 | Outpatient (CLI) | payer MEDICARE, BC ==
[2023-03-27 11:38] LABS: African American GFR (CKD) >90 (>60 ml/min/1.73 sqM); Blood Urea Nitrogen 10 mg/dL (7-17); Non-African American GFR(CKD) >90 (>60 ml/min/1.73 sqM)
--- NOTE | 2023-03-27 12:35 | CT ---
EXAMINATION TYPE: CT angio chest DATE OF EXAM: 03/27/2023 COMPARISON: Chest CT November 26, 2009 HISTORY: cough and weakness, chemo for breast cancer x [address] DLP: 206.3 mGycm. Automated Exposure Control for Dose Reduction was Utilized. CONTRAST: CTA scan of the thorax is performed with IV Contrast, patient injected with 48 cc mL of Isovue 300, p ulmonary embolism protocol. MIP Images are created on CT scanner and reviewed. FINDINGS: LUNGS: The lungs are grossly clear, there is no concerning parenchymal mass or nodule identified. T here is no pleural effusion or pneumothorax seen. The tracheobronchial tree is patent. MEDIASTINUM: Suboptimal study with most dense contrast in the SVC but no convincing evidence for sign ificant or central pulmonary embolism. Some enhancement of the aorta without aneurysm or dissection. There are no greater than 1 cm hilar or mediastinal lymph nodes. No cardiomegaly or pericardial ef fusion is seen. OTHER: Posttreatment change to the upper left breast is now present. Right internal jugular Mediport catheter terminates in SVC. Slight scoliotic curvature with multilevel spurring in the spine. IMPRESSION: Suboptimal study without acute central pulmonary embolism. No suspicious acute pulmonary process.
== END | disposition home or self-care (01) ==
LOC: RADCTMAIN 11:00
PROVIDERS: ATTEND Internal Medicine Hematology & Oncology
DX: C50.411 Malignant neoplasm of upper-outer quadrant of right female breast (principal); R06.02 Shortness of breath; R05.9 Cough, unspecified; R53.83 Other fatigue
CPT/HCPCS: 82565; 84520; 71275; 36415; Q9967

== ENCOUNTER 2023-04-04 15:52 | Emergency (ER) | payer MEDICARE, BC ==
--- NOTE | 2023-04-04 16:48 | ED ---
Fever HPI - General Chief Complaint: Fever Stated Complaint: Fever Time Seen by Provider: 04/04/23 16:19 Source: patient Mode of arrival: ambulatory Limitations: no limitations - History of Present Illness Initial Comments: This patient is a 67-year-old woman with history of breast cancer currently receiving chemotherapy. She states that her last treatment was yesterday. Over the course of last night she felt chills coming on and this morning noted that she was having fever. She has also had a little bit of nonproductive cough. Of note she did test positive for COVID-19 03/27. The patient states she was told to come to emergency department by her oncologist, Dr. Castillo. Complaint: fever -: hour(s) Context: on chemotherapy Associated Symptoms: chills, cough Treatments Prior to Arrival: none - Related Data Home Medications Medication Instructions Recorded Confirmed Levothyroxine Sodium [Levoxyl] 75 mcg PO DAILY 06/05/19 04/04/23 Cholecalciferol (Vitamin D3) 75 mcg PO DAILY 04/04/23 04/04/23 [Vitamin D3 (3000 Iu)] Magnesium Oxide [Magnesium] 500 mg PO DAILY 04/04/23 04/04/23 [place]-3 Fatty Acids [[place]-3] 1,000 mg PO DAILY 04/04/23 04/04/23 Previous Rx's Medication Instructions Recorded Ciprofloxacin HCl [Cipro] 500 mg PO Q12HR #14 tablet 04/04/23 Allergies Allergy/AdvReac Type Severity Reaction Status Date / Time methylprednisolone AdvReac Light Verified 04/04/23 17:41 [From Medrol] headed & skin on face turned red and was painful peanut AdvReac Rash on Verified 04/04/23 17:41 legs prednisone AdvReac Light Verified 04/04/23 17:41 headed & skin on face turned red and was painful tree nut AdvReac Rash on Verified 04/04/23 17:41 legs Review of Systems ROS Statement: Those systems with pertinent positive or pertinent negative responses have been documented in the HPI. ROS Other: All systems not noted in ROS Statement are negative. Constitutional: Reports: as per HPI, fever, chills ENT: Denies: ear pain, throat pain Respiratory: Reports: cough. Denies: dyspnea, wheezes, hemoptysis Cardiovascular: Denies: chest pain, palpitations, edema, syncope Gastrointestinal: Denies: abdominal pain, vomiting, diarrhea Genitourinary: Denies: dysuria, frequency, hematuria Skin: Denies: rash Neurological: Denies: headache, weakness, numbness Past Medical History Past Medical History: Cancer, Osteoarthritis (OA), Thyroid Disorder Additional Past Medical History / Comment(s): hx. breast cancer October 2009- radiation & surgery. triple negative breast cancer current 04/22 History of Any Multi-Drug Resistant Organisms: None Reported Past Surgical History: Breast Surgery, Hysterectomy, Joint Replacement Additional Past Surgical History / Comment(s): left breast lumpectomy w/few axillary lymph nodes removed, cyst removed from right forearm. Right hip replacement 2019 Past Anesthesia/Blood Transfusion Reactions: Postoperative Nausea & Vomiting (PONV) Additional Past Anesthesia/Blood Transfusion Reaction / Comment(s): BP drops Past Psychological History: No Psychological Hx Reported Smoking Status: Never smoker Past Alcohol Use History: Rare Past Drug Use History: None Reported - Past Family History Mother Family Medical History: Deep Vein Thrombosis (DVT) General Exam Limitations: no limitations General appearance: alert, in no apparent distress Head exam: Present: atraumatic, normocephalic Eye exam: Present: normal appearance. Absent: scleral icterus, conjunctival injection Neck exam: Present: normal inspection, full ROM. Absent: meningismus Respiratory exam: Present: normal lung sounds bilaterally. Absent: respiratory distress, wheezes, rales, rhonchi, stridor, accessory muscle use Cardiovascular Exam: Present: normal rhythm, tachycardia, normal heart sounds. Absent: systolic murmur, diastolic murmur, rubs, gallop GI/Abdominal exam: Present: soft. Absent: distended, tenderness, guarding, rebound, rigid Extremities exam: Present: normal inspection, normal capillary refill. Absent: pedal edema, calf tenderness Back exam: Present: normal inspection. Absent: CVA tenderness (R), CVA t enderness (L) Neurological exam: Present: alert Skin exam: Present: warm, dry, intact, normal color. Absent: rash Course Vital Signs 04/04/23 04/04/23 04/04/23 15:55 18:55 19:57 Temperature 99.6 F 98 F Pulse Rate 113 H 88 80 Respiratory 20 18 18 Rate Blood Pressure 94/60 118/72 113/65 O2 Sat by Pulse 94 L 97 100 Oximetry Medical Decision Making - Medical Decision Making The patient had chest x-ray which I interpreted as showing possible early infiltrate. Was pt. 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 What history was obtained from this source @ -[No] Did you review nursing and triage notes (agree or disagree)? Why? @ -[I reviewed and agree with nursing and triage notes] Were old charts reviewed (outside hosp., previous admission, EMS record, old EKG, old radiological studies, urgent care reports/EKG's, [facility] records)? Report findings @ -[No old charts were reviewed] Differential Diagnosis (chest pain, altered mental status, abdominal pain women, abdominal pain men, vaginal bleeding, weakness, fever, dyspnea, syncope, headache, dizziness, GI bleed, back pain, seizure, CVA, palpatations, mental health, musculoskeletal)? @ -[Differential Fever: Pneumonia, viral URI, endocarditis, myocarditis, pericarditis, otitis, sinusitis, peritonsillar Abscess, retropharyngeal Abscess, epiglottitis, peritonitis, appendicitis, Dilma cystitis, diverticulitis, hepatitis, colitis, UTI, PID, TOA, pyelonephritis, prostatitis, epididymitis, meningitis, encephalitis, pulmonary embolism, CVA, thyroid storm, pancreatitis, adrenal crisis, cavernous sinus thrombosis, this is not meant to be an all-inclusive list. EKG interpreted by me (3pts min.). @ -[As above] X-rays interpreted by me (1pt min.). @ -[I interpreted as above CT interpreted by me (1pt min.). @ -[None done] U/S interpreted by me (1pt. min.). @ -[None done] What testing was considered but not performed or refused? (CT, X-rays, U/S, labs)? Why? @ -[None] What meds were considered but not given or refused? Why? @ -[None] Did you discuss the management of the patient with other professionals (professionals i.e. AQUILINO Ward, AUXILIARY POWER EQUIPMENT OPERATOR, lab, RT, psych nurse, oncology social worker, fur dresser, teacher, gift officer, field nurse case manager)? Give summary @ -[No] Was smoking cessation discussed for >3mins.? @ -[No] Was critical care preformed (if so, how long)? @ -yes, 30 minutes Were there social determinants of health that impacted care today? How? (Homelessness, low income, unemployed, alcoholism, drug addiction, transportation, low edu. Level, literacy, decrease access to med. care, correction, rehab)? @ -[No] Was there de-escalation of care discussed even if they declined (Discuss DNR or withdrawal of care, Hospice)? DNR status @ -[No] What co-morbidities impacted this encounter? (DM, HTN, Smoking, COPD, CAD, Cancer, CVA, ARF, Chemo, Hep., AIDS, mental health diagnosis, sleep apnea, morbid obesity)? @ -[None] Was patient admitted / discharged? Hospital course, mention meds given and route, prescriptions, significant lab abnormalities, going to OR and other pertinent info. @ -[This patient is a 67-year-old woman currently undergoing chemotherapy. She had developed fever and the workup here showing suspected pneumonia. There are some white blood cells in the urine, patient is not having symptoms. The findings discussed with the patient's oncologist who does request she received course of outpatient antibiotics and close follow-up in the clinic. The patient would prefer this as well rather than be admitted. She started on medication here and will have close follow-up. Return parameters discussed Undiagnosed new problem with uncertain prognosis? @ -[No] Drug Therapy requiring intensive monitoring for toxicity (Heparin, Nitro, Insulin, Cardizem)? @ -[No] Were any procedures done? @ -[No] Diagnosis/symptom? @ -[Acute pneumonia Acute fever Possible urinary tract infection Acute, or Chronic, or Acute on Chronic? @ -[Acute Uncomplicated (without systemic symptoms) or Complicated (systemic symptoms)? @ -[Uncomplicated Side effects of treatment? @ -[No] Exacerbation, Progression, or Severe Exacerbation? @ -[No] Poses a threat to life or bodily function? How? (Chest pain, USA, ID, pneumonia, PE, COPD, DKA, ARF, appy, cholecystitis, CVA, Diverticulitis, Homicidal, Suicidal, threat to staff... and all critical care pts) @ -[Yes, untreated infection in chemotherapy patient may progress to sepsis/ - Lab Data Result diagrams: 04/04/23 17:07 04/04/23 17:07 Lab Results 04/04/23 04/04/23 04/04/23 Range/Units 17:07 17:07 17:07 WBC 7.1 (3.8-10.6) k/uL RBC 3.29 L (3.80-5.40) m/uL Hgb 10.1 L (11.4-16.0) gm/dL Hct 29.2 L (34.0-46.0) % MCV 88.9 (80.0-100.0) fL MCH 30.8 (25.0-35.0) pg MCHC 34.7 (31.0-37.0) g/dL RDW 15.8 H (11.5-15.5) % Plt Count 292 (150-450) k/uL MPV 7.4 Neutrophils % 89 % Lymphocytes % 6 % Monocytes % 2 % Eosinophils % 3 % Basophils % 0 % Neutrophils # 6.3 (1.3-7.7) k/uL Lymphocytes # 0.4 L (1.0-4.8) k/uL Monocytes # 0.2 (0-1.0) k/uL Eosinophils # 0.2 (0-0.7) k/uL Basophils # 0.0 (0-0.2) k/uL PT 10.9 (10.0-12.5) sec INR 1.0 (<1.2) APTT 23.5 (22.0-30.0) sec Sodium (137-145) mmol/L Potassium (3.5-5.1) mmol/L Chloride (98-107) mmol/L Carbon Dioxide (22-30) mmol/L Anion Gap mmol/L BUN (7-17) mg/dL Creatinine (0.52-1.04) mg/dL Est GFR (CKD-EPI)AfAm (>60 ml/min/1.73 sqM) Est GFR (CKD-EPI)NonAf (>60 ml/min/1.73 sqM) Glucose (74-99) mg/dL Plasma Lactic Acid Arturo (0.7-2.0) mmol/L Calcium (8.4-10.2) mg/dL Total Bilirubin (0.2-1.3) mg/dL AST (14-36) U/L ALT (4-34) U/L Alkaline Phosphatase (38-126) U/L Total Protein (6.3-8.2) g/dL Albumin (3.5-5.0) g/dL Urine Color Yellow Urine Appearance Cloudy H (Clear) Urine pH 5.0 (5.0-8.0) Ur Specific Spurger 1.016 (1.001-1.035) Urine Protein Trace H (Negative) Urine Glucose (UA) Negative (Negative) Urine Ketones Negative (Negative) Urine Blood Small (Negative) Urine Nitrite Negative (Negative) Urine Bilirubin Negative (Negative) Urine Urobilinogen <2.0 (<2.0) mg/dL Ur Leukocyte Esterase Large (Negative) Urine RBC 4 (0-5) /hpf Urine WBC 86 H (0-5) /hpf Ur Squamous Epith Cells 19 H (0-4) /hpf Urine Bacteria Rare H (None) /hpf Urine Mucus Few H (None) /hpf 04/04/23 04/04/23 Range/Units 17:07 17:07 WBC (3.8-10.6) k/uL RBC (3.80-5.40) m/uL Hgb (11.4-16.0) gm/dL Hct (34.0-46.0) % MCV (80.0-100.0) fL MCH (25.0-35.0) pg MCHC (31.0-37.0) g/dL RDW (11.5-15.5) % Plt Count (150-450) k/uL MPV Neutrophils % % Lymphocytes % % Monocytes % % Eosinophils % % Basophils % % Neutrophils # (1.3-7.7) k/uL Lymphocytes # (1.0-4.8) k/uL Monocytes # (0-1.0) k/uL Eosinophils # (0-0.7) k/uL Basophils # (0-0.2) k/uL PT (10.0-12.5) sec INR (<1.2) APTT (22.0-30.0) sec Sodium 129 L (137-145) mmol/L Potassium 3.9 (3.5-5.1) mmol/L Chloride 98 (98-107) mmol/L Carbon Dioxide 23 (22-30) mmol/L Anion Gap 8 mmol/L BUN 17 (7-17) mg/dL Creatinine 0.76 (0.52-1.04) mg/dL Est GFR (CKD-EPI)AfAm >90 (>60 ml/min/1.73 sqM) Est GFR (CKD-EPI)NonAf 82 (>60 ml/min/1.73 sqM) Glucose 110 H (74-99) mg/dL Plasma Lactic Acid Arturo 0.8 (0.7-2.0) mmol/L Calcium 8.5 (8.4-10.2) mg/dL Total Bilirubin 1.1 (0.2-1.3) mg/dL AST 29 (14-36) U/L ALT 25 (4-34) U/L Alkaline Phosphatase 62 (38-126) U/L Total Protein 5.7 L (6.3-8.2) g/dL Albumin 3.2 L (3.5-5.0) g/dL Urine Color Urine Appearance (Clear) Urine pH (5.0-8.0) Ur Specific Spurger (1.001-1.035) Urine Protein (Negative) Urine Glucose (UA) (Negative) Urine Ketones (Negative) Urine Blood (Negative) Urine Nitrite (Negative) Urine Bilirubin (Negative) Urine Urobilinogen (<2.0) mg/dL Ur Leukocyte Esterase (Negative) Urine RBC (0-5) /hpf Urine WBC (0-5) /hpf Ur Squamous Epith Cells (0-4) /hpf Urine Bacteria (None) /hpf Urine Mucus (None) /hpf - EKG Data -: EKG Interpreted by Pa EKG shows normal: sinus rhythm, axis (Normal), intervals (VT interval 223 ms, consistent with first-degree AV block. QRS duration 113, QTC 395, both normal), QRS complexes (RSR prime, consistent with incomplete right bundle branch block ), ST-T waves (Normal) Rate: normal (Rate 88 bpm) Disposition Clinical Impression: Fever, Pneumonia Disposition: HOME SELF-CARE Condition: Fair Instructions (If sedation given, give patient instructions): Fever in Adults (ED), Pneumonia (ED) Prescriptions: Ciprofloxacin HCl [Cipro] 500 mg PO Q12HR #14 tablet Is patient prescribed a controlled substance at d/c from ED?: No Referrals: Ernie-Reincke,Consuelo, MD [Primary Care Provider] - 1-2 days
[2023-04-04 17:25] LABS: Basophils % (A) 0 %; Eosinophils # (A) 0.2 k/uL (0-0.7); Eosinophils % (A) 3 %; HCT 29.2 % (34.0-46.0); HGB 10.1 gm/dL (11.4-16.0); Lymphocytes # (A) 0.4 k/uL (1.0-4.8); Lymphocytes % (A) 6 %; MCH 30.8 pg (25.0-35.0); MCHC 34.7 g/dL (31.0-37.0); MCV 88.9 fL (80.0-100.0); Mean Platelet Volume 7.4; Monocytes # (A) 0.2 k/uL (0-1.0); Monocytes % (A) 2 %; Neutrophils # (A) 6.3 k/uL (1.3-7.7); Neutrophils % (A) 89 %; Platelet Count 292 k/uL (150-450); RBC 3.29 m/uL (3.80-5.40); RDW 15.8 % (11.5-15.5); WBC 7.1 k/uL (3.8-10.6)
--- NOTE | 2023-04-04 17:28 | XR ---
EXAMINATION TYPE: XR chest 2V DATE OF EXAM: 04/04/2023 5:21 PM CLINICAL INDICATION:Female, 67 years old with history of Fever; COMPARISON: Chest radiographs from 04/01/2021. TECHNIQUE: XR chest 2V Frontal and lateral views of the chest. FINDINGS: Lungs/Pleura: Right middle lobe airspace opacities There is flattening of the diaphragm with increase d lucency of the lungs. No evidence of pneumothorax, pleural effusion or focal consolidation. Pulmonary vascularity: Unremarkable. Heart/mediastinum: Cardiomediastinal silhouette is unremarkable. Surgical clips project over the left hilum. Musculoskeletal: No acute osseous pathology. Other findings: None Lines/Tubes: [id number] projecting over the right hemithorax with distal tip at the cavoatrial junction. IMPRESSION: 1. Right middle lobe airspace opacities. Correlate for pneumonia. 2. COPD changes.
[2023-04-04 17:36] LABS: ALT 25 U/L (4-34); AST 29 U/L (14-36); African American GFR (CKD) >90 (>60 ml/min/1.73 sqM); Albumin 3.2 g/dL (3.5-5.0); Alkaline Phosphatase 62 U/L (38-126); Anion Gap 8 mmol/L; Blood Urea Nitrogen 17 mg/dL (7-17); Calcium 8.5 mg/dL (8.4-10.2); Carbon Dioxide 23 mmol/L (22-30); Chloride 98 mmol/L (98-107); Glucose 110 mg/dL (74-99); Non-African American GFR(CKD) 82 (>60 ml/min/1.73 sqM); Potassium 3.9 mmol/L (3.5-5.1); Sodium 129 mmol/L (137-145); Total Bilirubin 1.1 mg/dL (0.2-1.3); Total Protein 5.7 g/dL (6.3-8.2)
[2023-04-04 17:38] LABS: Partial Thromboplastin Time 23.5 sec (22.0-30.0); Prothrombin Time 10.9 sec (10.0-12.5)
[2023-04-04] MEDS ORDERED: CEFEPIME 2 GM in SODIUM CHLORIDE 0.9% 100 ML IVPB STA (17:56)
[2023-04-04] MEDS ORDERED: AZITHROMYCIN 500 MG TAB PO STA (17:56)
[2023-04-04] MEDS ORDERED: SODIUM CHLORIDE 0.9% 1,000 ML IV ONE (18:33)
[2023-04-04 18:58] LABS: Bacteria,Urine Rare /hpf; Mucus,Urine Few /hpf; RBC,Urine 4 /hpf (0-5); Squamous Epithelial Cell,Urine 19 /hpf (0-4); WBC,Urine 86 /hpf (0-5)
[2023-04-04 19:00] LABS: Appearance,Urine Cloudy (Clear); Bilirubin,Urine Negative (Negative); Blood,Urine Small (Negative); Color,Urine Yellow; Glucose,Urine (UA) Negative (Negative); Ketones,Urine Negative (Negative); Protein,Urine Trace (Negative); Specific Gravity,Urine 1.016 (1.001-1.035)
[2023-04-04 19:01] LABS: Leukocyte Esterase,Urine Large (Negative); Nitrite,Urine Negative (Negative); Urobilinogen,Urine <2.0 mg/dL (<2.0)
[2023-04-04 19:04] VITALS: RESP 18; TEMP 98
[2023-04-04 20:06] VITALS: BP 113/65; PULSE 80
== END 2023-04-04 20:02 | disposition home or self-care (01) ==
LOC: EC 15:52
DX: J18.9 Pneumonia, unspecified organism (principal); I44.0 Atrioventricular block, first degree; E07.9 Disorder of thyroid, unspecified; Z79.890 Hormone replacement therapy; Z91.010 Allergy to peanuts; Z88.8 Allergy status to other drugs, medicaments and biological substances
CPT/HCPCS: 99284; 96365; 36415; 93005; 80053; 83605; 85025; 85610; 85730; 81001; 87040; 87086; 71046; J0692

== ENCOUNTER → 2023-04-26 | Outpatient (CLI) | payer MEDICARE, BC ==
--- NOTE | 2023-04-26 12:19 | USB ---
Reason for Exam: Clinical finding. Patient History: Menarche at age 13. First Full-Term at age 20. Hysterectomy at age 40. Patient has history of breast feeding. Breast cancer, left, age 54. Breast cancer, right, age 67. Previous chest radiation therapy at age 54. 11/21/2022, Malignant US biopsy breast VAD RT on the right side. 06/2006, Excisional Biopsy on the Left side. 2003, Cyst Aspiration on the Left side. 2002, Benign Cyst Aspiration on the left side. 11/30/2009, Malignant Excisional Biopsy on the left side. 11/19/2009, Malignant Core Biopsy on the left side. 04/08/2005, Core Biopsy on the Left side. 2009, Radiation Therapy on the left side. Radiation Therapy, left. Maternal cousin had breast cancer, age 40. Prior Study Comparison: 11/09/2022 Bilateral MG 3D screening mammo w/cad, [facility]. 11/15/2022 Right MG 3D work up w/cad RT, [facility]. 11/15/2022 Right US breast workup RT, [facility]. 11/21/2022 Right MG diagnostic mammo RT wo CAD, [facility]. Findings: Technique utilized:US breast limited RT Image; Ultrasound imaging of: All 4 quadrants, the retroareolar region and axilla. Right breast mass at 10:00 centimeters the nipple measuring 13 x 5 x 11 mm previously 16 x 9 x 13 mm. Overall Assessment: Known biopsy proven malignancy, BI-RAD 6 Management: Surgical Consultation of the right breast. Minimally decreased size of presumed biopsied lesion. Differences in size could be due to the amount of tissue taken during biopsy. Continued attention on follow-up. A clinical breast exam by your physician is recommended on an annual basis and results should be correlated with mammographic findings. This exam should not preclude additional follow-up of suspicious palpable abnormalities. Results were given to the patient verbally at the time of exam. Electronically signed and approved by: Chris Pagan DO
--- NOTE | 2023-04-26 12:31 | CA ---
Transthoracic Echo Report Name: Nadia Avila Age: 67 Gender: F : 1955 Exam Date: 04/26/2023 11:15 Exam Location: [place] [facility] Ht (in): 66 Wt (lb): 157 Ordering Physician: Fabrice Kwong MD Attending/Referring Phys: Paint Trimmer Pipe Bowls Meka Segovia [facility] Procedure CPT: Indications: Z01.818 Pre-chemo; C50.411 Breast cancer Cardiac Hx: Technical Quality: Fair Contrast 1: Total Dose (mL): Contrast 2: Total Dose (mL): MEASUREMENTS (Male / Female) Normal Values 2D ECHO LV Diastolic Diameter PLAX 4.1 cm 4.2 - 5.9 / 3.9 - 5.3 cm LV Systolic Diameter PLAX 2.8 cm IVS Diastolic Thickness 0.6 cm 0.6 - 1.0 / 0.6 - 0.9 cm LVPW Diastolic Thickness 0.9 cm 0.6 - 1.0 / 0.6 - 0.9 cm LV Relative Wall Thickness 0.4 LV Diastolic Volume MOD BP 55.5 cm??? 67 - 155 / 56 - 104 cm??? LV Systolic Volume MOD BP 21.7 cm??? 22 - 58 / 19 - 49 cm??? LV Ejection Fraction MOD BP 60.9 % >= 55 % LV Cardiac Index MOD BP 1437.8 cm???/min???m??? LV Diastolic Volume MOD 4C 67.9 cm??? LV Systolic Volume MOD 4C 24.9 cm??? LV Ejection Fraction MOD 4C 63.3 % LV Cardiac Index MOD 4C 1830.4 cm???/min???m??? LV Diastolic Length 4C 7.3 cm LV Systolic Length 4C 6.3 cm LV Diastolic Volume MOD 2C 43.5 cm??? LV Systolic Volume MOD 2C 19.0 cm??? LV Ejection Fraction MOD 2C 56.5 % LV Cardiac Index MOD 2C 1046.5 cm???/min???m??? LV Diastolic Length 2C 7.8 cm LV Systolic Length 2C 6.2 cm Ascending Aorta Diameter 2.7 cm M-MODE Aortic Root Diameter MM 2.2 cm LA Systolic Diameter MM 3.4 cm LA Ao Ratio MM 1.5 AV Cusp Separation MM 1.8 cm DOPPLER AV Peak Velocity 130.3 cm/s AV Peak Gradient 6.8 mmHg AV Mean Velocity 91.5 cm/s AV Mean Gradient 3.7 mmHg AV Velocity Time Integral 24.5 cm LVOT Peak Velocity 115.8 cm/s LVOT Peak Gradient 5.4 mmHg LVOT Velocity Time Integral 20.6 cm Mitral E Point Velocity 55.1 cm/s Mitral A Point Velocity 61.0 cm/s Mitral E to A Ratio 0.9 MV Deceleration Time 158.7 ms LV E' Lateral Velocity 9.7 cm/s Mitral E to LV E' Lateral Ratio 5.7 LV E' Septal Velocity 8.4 cm/s Mitral E to LV E' Septal Ratio 6.5 TR Peak Velocity 283.4 cm/s TR Peak Gradient 32.1 mmHg Right Atrial Pressure 3.0 mmHg Pulmonary Artery Systolic Pressu 35.1 mmHg Right Ventricular Systolic Press 35.1 mmHg FINDINGS Left Ventricle Left ventricular wall thickness normal. Left ventricular cavity size normal. Left ventricular ejection fraction is estimated at 55-60%. Right Ventricle Normal right ventricular size. Mild-moderate pulmonary hypertension. Right Atrium Normal right atrial size. Left Atrium Normal left atrial size. Mitral Valve Structurally normal mitral valve. No mitral regurgitation. Aortic Valve Trileaflet aortic valve. No aortic valve stenosis or regurgitation. Tricuspid Valve Structurally normal tricuspid valve. Moderate tricuspid regurgitation. Pulmonic Valve Pulmonic valve not well visualized. Trace pulmonic regurgitation. Pericardium Minimal pericardial effusion (normal variant). Aorta Normal size aortic root and proximal ascending aorta. CONCLUSIONS Left ventricular ejection fraction 55-60% RVSP 35 Moderate tricuspid regurgitation No pericardial effusion Previewed by: Dr. Nathan Vieyra DO (Electronically Signed) Final Date: 26 April 2023 12:31
== END | disposition home or self-care (01) ==
LOC: RADECHMAIN 10:58
PROVIDERS: ATTEND Internal Medicine Hematology & Oncology
DX: Z01.818 Encounter for other preprocedural examination (principal); C50.411 Malignant neoplasm of upper-outer quadrant of right female breast; I36.1 Nonrheumatic tricuspid (valve) insufficiency; Z80.3 Family history of malignant neoplasm of breast
CPT/HCPCS: 93306

== ENCOUNTER → 2023-11-15 | Outpatient (CLI) | payer MEDICARE, BC ==
--- NOTE | 2023-11-16 23:46 | BD ---
EXAMINATION TYPE: Axial Bone Density DATE OF EXAM: 11/15/2023 CLINICAL HISTORY: 68 years old Female. ICD-10 CODE: C50.212 MALIG NEOPLASM OF UPPER-INNER QUADRANT O F Height: 64.5 in Weight: 156 lbs FRAX RISK QUESTIONS: History of Fracture in Adulthood: rt wrist fx age 30 Secondary Osteoporosis: 3. Menopause before 45: partial hysterectomy age 40 RISK FACTORS HISTORY OF: History of Wrist Fracture: rt wrist age 30 Surgery to Hip(right): hip replacement 2019 MEDICATIONS: Thyroid Medications: yes Which medication: Levothyroxine How Lon+ years EXAM MEASUREMENTS: Bone mineral densitometry was performed using the iM[employer] System. Bone mineral density as measured about the Lumbar spine is: ----- L1-L4(G/cm2): 0.892 T Score Values are as follows: ----- L1: -2.0 ----- L2: -2.9 ----- L3: -2.1 ----- L4: -2.7 ----- L1-L4: -2.4 Z Score Values are as follows: ----- L1: -0.5 ----- L2: -1.5 ----- L3: -0.7 ----- L4: -1.3 ----- L1-L4: -1.0 Bone mineral density has: Decreased -1.9% since study of: 11/12/2021 Bone mineral density about the L hip (g/cm2): 0.842 T Score values are as follows: -----L Neck: -1.5 -----L Total: -1.3 Z Score values are as follows: -----L Neck: 0.0 -----L Total: -0.1 Bone mineral density has: Increased 4.2% since study of: 11/12/2021 FRAX%s: The graph provided illustrates a 15.6% chance for a major osteoporotic fx and a 2.0% chance f or the hips probability for fx in 10 years time. IMPRESSION: Osteopenia (T Score between -2.5 and -1). There is slightly increased risk of fracture and the patient may be considered for treatment. Re-Screen 2-5 years. NOTE: T-SCORE=SD OF THE YOUNG ADULT MEAN.
== END | disposition home or self-care (01) ==
LOC: RADBDWWP 12:48
PROVIDERS: ATTEND Internal Medicine Hematology & Oncology
DX: C50.212 Malignant neoplasm of upper-inner quadrant of left female breast (principal); C50.411 Malignant neoplasm of upper-outer quadrant of right female breast; M85.89 Other specified disorders of bone density and structure, multiple sites; E86.0 Dehydration; Z17.0 Estrogen receptor positive status [ER+]; Z78.0 Asymptomatic menopausal state
CPT/HCPCS: 77080